=== PATIENT | female | born 1960 | race Hispanic/Latino ===

== ENCOUNTER 2021-04-03 06:34 | Emergency (ER) | payer OTHER ==
--- OUTSIDE RECORDS SUMMARY | 2021-04-03 06:39 | XMS REPORT | Continuity of Care Document ---
:1960 Author Organization [facility] t Address [address] [place] [address] Care Team Providers Name Role Phone Lana Lomax Primary Care Physician Arcadio JAIN, T Attending Clinician Unavailable Only, Test Attending Clinician Unavailable Conrad TORRES, Dany Attending Clinician Dany MARTINES Attending Clinician Unavailable Doctor Unassigned, Name Attending Clinician Unavailable SHMUEL MACHADO Attending Clinician Unavailable SHMUEL MACHADO Admitting Clinician Unavailable Payers Payer Name Policy Type Policy Number Effective Date Expiration Date S ource Problems This patient has no known problems. Allergies, Adverse Reactions, Alerts Allergy Allergy Status Severity Reaction(s) Onset Inactive Treating Comm ents Source Name Type Date Date Clinician NO KNOWN Drug Active Univers ALLERGIE Class ity of S [facility] Social History Social Habit Start Date Stop Date Quantity Comments Source Exposure to Yes [facility] SARS-CoV-2 (event) Medica l Branch Sex Assigned At [birth year] [facility] 00:00:00 00:00:00 [facility] Smoking Status Start Date Stop Date Source Unknown if ever smoked [facility] Medications This patient has no known medications. Immunizations Ordered Filled Immunization Date Status Comments [facility] Immunization Name Name SARS-COV-2 COVID-19 2020-05-20 Completed Unive rsity of PFIZER VACCINE 00:00:00 [facility] SARS-COV-2 COVID-19 2020-05-20 Completed Unive rsity of PFIZER VACCINE 00:00:00 [facility] SARS-COV-2 COVID-19 2020-05-20 Completed Unive rsity of PFIZER VACCINE 00:00:00 [facility] SARS-COV-2 COVID-19 2020-05-20 Completed Unive rsity of PFIZER VACCINE 00:00:00 [facility] SARS-COV-2 COVID-19 2020-05-20 Completed Unive rsity of PFIZER VACCINE 00:00:00 [facility] SARS-COV-2 COVID-19 2020-05-20 Completed Unive rsity of PFIZER VACCINE 00:00:00 [facility] SARS-COV-2 COVID-19 2020-04-29 Completed Unive rsity of PFIZER VACCINE 00:00:00 [facility] SARS-COV-2 COVID-19 2020-04-29 Completed Unive rsity of PFIZER VACCINE 00:00:00 [facility] SARS-COV-2 COVID-19 2020-04-29 Completed Unive rsity of PFIZER VACCINE 00:00:00 [facility] SARS-COV-2 COVID-19 2020-04-29 Completed Unive rsity of PFIZER VACCINE 00:00:00 [facility] SARS-COV-2 COVID-19 2020-04-29 Completed Unive rsity of PFIZER VACCINE 00:00:00 [facility] SARS-COV-2 COVID-19 2020-04-29 Completed Unive rsity of PFIZER VACCINE 00:00:00 [facility] Procedures Procedure Date / Time Performed Performing Clinician [facility] ASSIGNMENT OF BENEFITS 2020-10-26 16:29:02 Doctor Unassigned, No [facility] Encounters Start End Encounter Admission Attending Care Care Encounter Source Date/Time Date/Time Type Type Clinicians Facility Department ID 2020-10-27 2020-10-27 Letter MIRZA Ervin [id number] Univers 00:00:00 00:00:00 (Out) Digna [place] [id number] [facility] [id number] Adam as [phone] [address] 2020-10-26 2020-10-26 Laboratory Only, Adc Test [place] 1.2.840. [id number] Univers 11:33:17 11:48:17 Only Pj Martines [id number] ity of [place] [id number] [facility] [id number] [facility] 353 Branch 2020-10-26 2020-10-26 Outpatient Brigida [facility]ARTINES [facility] [id number] Univers 11:00:00 11:00:00 PJ ity of [facility] 2020-10-26 2020-10-26 Orders Doctor MIRZA [id number] Univers 00:00:00 00:00:00 Only Unassigned, ASHU [id number] [place] [facility] [id number] [facility] [phone] [facility] 009 Branch Results Test Description Test Time Test Comments Results Result Comments Source ANTI-MITOCHONDRIAL AB, REFLEX TO TITER 2017-04-08 12:17:00 Test Item Value Reference Range Interpretation Comme nts SCAN RESULT (test code = 6386046) [id number] 10:38:00 Test Item Value Reference Range Interpretation Comments ALPHA-1 ANTITRYPSIN (BEAKER) 178.00 mg/dL 90.00-200.00 (test code = 502) HERPES VIRUS ANTIBODY, [id number] 13:52:00 Test Item Value Reference Range Interpretation Comments HERPES VIRUS IGM (BEAKER) (test code Positive = 1808) HSV IgM 1 = PositiveHSV IgM 2 = [id number] 05:39:00 Test Item Value Reference Range Interpretation Comments PHOSPHORUS (BEAKER) (test code = 2.3 mg/dL 2.3-4.7 604) [id number] 05:39:00 Test Item Value Reference Range Interpretation Comments MAGNESIUM (BEAKER) (test code = 2.3 mg/dL 1.6-2.6 627) BASIC METABOLIC [id number] 05:39:00 Test Item Value Reference Range Interpretation Comments SODIUM (BEAKER) 139 meq/L 136-145 (test code = 381) POTASSIUM (BEAKER) 4.3 meq/L 3.5-5.1 (test code = 379) CHLORIDE (BEAKER) 107 meq/L 98-107 (test code = 382) CO2 (BEAKER) (test 25 meq/L -29 code = 355) BLOOD UREA NITROGEN 9 mg/dL 7-21 (BEAKER) (test code = 354) CREATININE (BEAKER) 0.59 mg/dL 0.57-1.25 (test code = 358) GLUCOSE RANDOM 103 mg/dL 70-105 (BEAKER) (test code = 652) CALCIUM (BEAKER) 8.7 mg/dL 8.4-10.2 (test code = 697) EGFR (BEAKER) (test 105 mL/min/1.73 ESTIM ATED GFR IS code = 1092) sq m NOT ACCURATE CREATININE CLEARANCE IN PREDICTING GLOMERULAR FILTRATION RATE . ESTIMATED GFR I S NOT APPLICABLE FOR DIALYSIS PATIEN TS. HEPATIC FUNCTION [id number] 05:39:00 Test Item Value Reference Range Interpretation Comments TOTAL PROTEIN (BEAKER) (test code = 6.9 gm/dL 6.0-8.3 770) ALBUMIN (BEAKER) (test code = 1145) 3.5 g/dL 3.5-5.0 BILIRUBIN TOTAL (BEAKER) (test code 0.9 mg/dL 0.2-1.2 = 377) BILIRUBIN DIRECT (BEAKER) (test 0.4 mg/dL 0.1-0.5 code = 706) ALKALINE PHOSPHATASE (BEAKER) (test 118 U/L 40-150 code = 346) AST (SGOT) (BEAKER) (test code = 55 U/L 5-34 H 353) ALT (SGPT) (BEAKER) (test code = 402 U/L 6-55 H 347) [id number] 05:29:00 Test Item Value Reference Range Interpretation Comments PROTIME (BEAKER) (test code = 13.3 seconds 11.7-14.7 759) INR (BEAKER) (test code = 370) 1.0 <=5.9 PARTIAL THROMBOPLASTIN TIME 35.2 seconds 22.5-36.0 (BEAKER) (test code = 760) RECOMMENDED COUMADIN/WARFARIN INR THERAPY RANGESSTANDARD DOSE: 2.0 - 3.0 Includes: PROPHYLAXIS forvenous thrombosis, systemic embolization; TREATMENT for venous thrombosis and/or pulmonary embolus.HIGH RISK: Target INR is 2.5-3.5 for patients with mechanical heart valves.PROTHROMBIN [id number] 05:28:00 Test Item Value Reference Range Interpretation Comments PROTIME (BEAKER) (test code = 13.3 seconds 11.7-14.7 759) INR (BEAKER) (test code = 370) 1.0 <=5.9 RECOMMENDED COUMADIN/WARFARIN INR THERAPY RANGESSTANDARD DOSE: 2.0 - 3.0 Includes: PROPHYLAXIS forvenous thrombosis, systemic embolization; TREATMENT for venous thrombosis and/or pulmonary embolus.HIGH RISK: Target INR is 2.5-3.5 for patients with mechanical heart valves.CBC W/PLT COUNT & AUTO DIFFERENTIAL 2017-03-30 04:59:00 Test Item Value Reference Range Interpretation Comments WHITE BLOOD CELL COUNT (BEAKER) 5.2 K/ L 3.5-10.5 (test code = 775) RED BLOOD CELL COUNT (BEAKER) 4.50 M/ L 3.93-5.22 (test code = 761) HEMOGLOBIN (BEAKER) (test code = 13.2 GM/DL 11.2-15.7 410) HEMATOCRIT (BEAKER) (test code = 40.5 % 34.1-44.9 411) MEAN CORPUSCULAR VOLUME (BEAKER) 90.0 fL 79.4-94.8 (test code = 753) MEAN CORPUSCULAR HEMOGLOBIN 29.3 pg 25.6-32.2 (BEAKER) (test code = 751) MEAN CORPUSCULAR HEMOGLOBIN CONC 32.6 GM/DL 32.2-35.5 (BEAKER) (test code = 752) RED CELL DISTRIBUTION WIDTH 15.5 % 11.7-14.4 H (BEAKER) (test code = 412) PLATELET COUNT (BEAKER) (test 221 K/CU MM 150-450 code = 756) MEAN PLATELET VOLUME (BEAKER) 10.1 fL 9.4-12.3 (test code = 754) NUCLEATED RED BLOOD CELLS 0 /100 WBC 0-0 (BEAKER) (test code = 413) NEUTROPHILS RELATIVE PERCENT 66 % (BEAKER) (test code = 429) LYMPHOCYTES RELATIVE PERCENT 24 % (BEAKER) (test code = 430) MONOCYTES RELATIVE PERCENT 7 % (BEAKER) (test code = 431) EOSINOPHILS RELATIVE PERCENT 2 % (BEAKER) (test code = 432) BASOPHILS RELATIVE PERCENT 0 % (BEAKER) (test code = 437) NEUTROPHILS ABSOLUTE COUNT 3.43 K/ L 1.56-6.13 (BEAKER) (test code = 670) LYMPHOCYTES ABSOLUTE COUNT 1.25 K/ L 1.18-3.74 (BEAKER) (test code = 414) MONOCYTES ABSOLUTE COUNT (BEAKER) 0.35 K/ L 0.24-0.36 (test code = 415) EOSINOPHILS ABSOLUTE COUNT 0.08 K/ L 0.04-0.36 (BEAKER) (test code = 416) BASOPHILS ABSOLUTE COUNT (BEAKER) 0.02 K/ L 0.01-0.08 (test code = 417) IMMATURE GRANULOCYTES-RELATIVE 1 % 0-1 PERCENT (BEAKER) (test code = 2801) [id number] 16:45:00 Test Item Value Reference Range Interpretation Comments FERRITIN (BEAKER) (test code = 361) 310 ng/mL 5-275 H HEPATITIS A ANTIBODY, [id number] 16:31:00 Test Item Value Reference Range Interpretation Comments HEPATITIS A IGG ANTIBODY (BEAKER) Reactive Nonreactive A (test code = 2797) HEPATITIS B SURFACE [id number] 16:26:00 Test Item Value Reference Range Interpretation Comments HEPATITIS B SURFACE ANTIBODY < mIU/mL <8.0 (BEAKER) (test code = 647) HEPATITIS B CORE ANTIBODY, [id number] 16:22:00 Test Item Value Reference Range Interpretation Comments HEPATITIS B CORE TOTAL ANTIBODY Nonreactive Nonreactive (BEAKER) (test code = 497) IMMUNOGLOBULIN G (IGG)2017-03-29 16:08:00 Test Item Value Reference Range Interpretation Comments IMMUNOGLOBULIN G (IGG) (BEAKER) 1265 mg/dL 540-1822 (test code = 427) IRON, TIBC, % SAT. (WITHOUT FERRITIN)2017-03-29 16:05:00 Test Item Value Reference Range Interpretation Comments IRON (BEAKER) (test code = 547) 42 ug/dL 40-160 TOTAL IRON BINDING CAPACITY 343 ug/dL 250-450 (BEAKER) (test code = 769) IRON % SATURATION (2) (BEAKER) 12 % 20-55 L (test code = 2590) GAMMA GLUTAMYL TRANSFERASE (GGT)2017-03-29 16:04:00 Test Item Value Reference Range Interpretation Comments GAMMA GLUTAMYL TRANSFERASE (BEAKER) 514 U/L 9-64 H (test code = 364) BASIC METABOLIC [id number] 06:01:00 Test Item Value Reference Range Interpretation Comments SODIUM (BEAKER) 136 meq/L 136-145 (test code = 381) POTASSIUM (BEAKER) 3.3 meq/L 3.5-5.1 L (test code = 379) CHLORIDE (BEAKER) 107 meq/L 98-107 (test code = 382) CO2 (BEAKER) (test 19 meq/L 22-29 L code = 355) BLOOD UREA NITROGEN 7 mg/dL 7-21 (BEAKER) (test code = 354) CREATININE (BEAKER) 0.57 mg/dL 0.57-1.25 (test code = 358) GLUCOSE RANDOM 79 mg/dL 70-105 (BEAKER) (test code = 652) CALCIUM (BEAKER) 7.7 mg/dL 8.4-10.2 L (test code = 697) EGFR (BEAKER) (test 109 mL/min/1.73 ESTIM ATED GFR IS code = 1092) sq m NOT ACCURATE CREATININE CLEARANCE IN PREDICTING GLOMERULAR FILTRATION RATE . ESTIMATED GFR I S NOT APPLICABLE FOR DIALYSIS PATIEN TS. [id number] 05:58:00 Test Item Value Reference Range Interpretation Comments PHOSPHORUS (BEAKER) (test code = 1.6 mg/dL 2.3-4.7 L 604) [id number] 05:58:00 Test Item Value Reference Range Interpretation Comments MAGNESIUM (BEAKER) (test code = 2.0 mg/dL 1.6-2.6 627) HEPATIC FUNCTION [id number] 05:58:00 Test Item Value Reference Range Interpretation Comments TOTAL PROTEIN (BEAKER) (test code = 6.8 gm/dL 6.0-8.3 770) ALBUMIN (BEAKER) (test code = 1145) 3.5 g/dL 3.5-5.0 BILIRUBIN TOTAL (BEAKER) (test code 1.0 mg/dL 0.2-1.2 = 377) BILIRUBIN DIRECT (BEAKER) (test 0.5 mg/dL 0.1-0.5 code = 706) ALKALINE PHOSPHATASE (BEAKER) (test 131 U/L 40-150 code = 346) AST (SGOT) (BEAKER) (test code = 131 U/L 5-34 H 353) ALT (SGPT) (BEAKER) (test code = 578 U/L 6-55 H 347) [id number] 05:12:00 Test Item Value Reference Range Interpretation Comments PROTIME (BEAKER) (test code = 13.4 seconds 11.7-14.7 759) INR (BEAKER) (test code = 370) 1.0 <=5.9 PARTIAL THROMBOPLASTIN TIME 33.4 seconds 22.5-36.0 (BEAKER) (test code = 760) RECOMMENDED COUMADIN/WARFARIN INR THERAPY RANGESSTANDARD DOSE: 2.0 - 3.0 Includes: PROPHYLAXIS forvenous thrombosis, systemic embolization; TREATMENT for venous thrombosis and/or pulmonary embolus.HIGH RISK: Target INR is 2.5-3.5 for patients with mechanical heart valves.PROTHROMBIN [id number] 05:11:00 Test Item Value Reference Range Interpretation Comments PROTIME (BEAKER) (test code = 13.4 seconds 11.7-14.7 759) INR (BEAKER) (test code = 370) 1.0 <=5.9 RECOMMENDED COUMADIN/WARFARIN INR THERAPY RANGESSTANDARD DOSE: 2.0 - 3.0 Includes: PROPHYLAXIS forvenous thrombosis, systemic embolization; TREATMENT for venous thrombosis and/or pulmonary embolus.HIGH RISK: Target INR is 2.5-3.5 for patients with mechanical heart valves.CBC W/PLT COUNT & AUTO DIFFERENTIAL 2017-03-29 04:53:00 Test Item Value Reference Range Interpretation Comments WHITE BLOOD CELL COUNT (BEAKER) 6.7 K/ L 3.5-10.5 (test code = 775) RED BLOOD CELL COUNT (BEAKER) 4.44 M/ L 3.93-5.22 (test code = 761) HEMOGLOBIN (BEAKER) (test code = 12.8 GM/DL 11.2-15.7 410) HEMATOCRIT (BEAKER) (test code = 39.6 % 34.1-44.9 411) MEAN CORPUSCULAR VOLUME (BEAKER) 89.2 fL 79.4-94.8 (test code = 753) MEAN CORPUSCULAR HEMOGLOBIN 28.8 pg 25.6-32.2 (BEAKER) (test code = 751) MEAN CORPUSCULAR HEMOGLOBIN CONC 32.3 GM/DL 32.2-35.5 (BEAKER) (test code = 752) RED CELL DISTRIBUTION WIDTH 15.6 % 11.7-14.4 H (BEAKER) (test code = 412) PLATELET COUNT (BEAKER) (test 223 K/CU MM 150-450 code = 756) MEAN PLATELET VOLUME (BEAKER) 10.1 fL 9.4-12.3 (test code = 754) NUCLEATED RED BLOOD CELLS 0 /100 WBC 0-0 (BEAKER) (test code = 413) NEUTROPHILS RELATIVE PERCENT 74 % (BEAKER) (test code = 429) LYMPHOCYTES RELATIVE PERCENT 17 % (BEAKER) (test code = 430) MONOCYTES RELATIVE PERCENT 7 % (BEAKER) (test code = 431) EOSINOPHILS RELATIVE PERCENT 1 % (BEAKER) (test code = 432) BASOPHILS RELATIVE PERCENT 1 % (BEAKER) (test code = 437) NEUTROPHILS ABSOLUTE COUNT 4.98 K/ L 1.56-6.13 (BEAKER) (test code = 670) LYMPHOCYTES ABSOLUTE COUNT 1.16 K/ L 1.18-3.74 L (BEAKER) (test code = 414) MONOCYTES ABSOLUTE COUNT (BEAKER) 0.44 K/ L 0.24-0.36 H (test code = 415) EOSINOPHILS ABSOLUTE COUNT 0.06 K/ L 0.04-0.36 (BEAKER) (test code = 416) BASOPHILS ABSOLUTE COUNT (BEAKER) 0.04 K/ L 0.01-0.08 (test code = 417) IMMATURE GRANULOCYTES-RELATIVE 0 % 0-1 PERCENT (BEAKER) (test code = 2801) MR, ABDOMEN, [id number] 22:05:00FINAL REPORT MRCP, MRI of abdomen without contrast Clinical History: Biliaryductal dilation seen on contemporaneous abdominal ultrasound Technique: Multiplanar and multisequence MR images of the biliary system are obtained, with dedicated MRCP protocol and images. No intravenous contrast is administered. In addition, 3 dimensional reformatted images of the biliary system are obtained to evaluate the biliary anatomy. Comparison: Abdominal ultrasound from 03/28/2017 Discussion: This examination is not dedicated to evaluating masses or parenchymal abnormalities of the abdominal organs. Diffuse hepatic steatosis. No discrete focal liver lesion within limitations of noncontrastexamination. There is moderate intrahepatic and extra hepatic biliary ductal dilation. The common bile duct measures up to 1.4 cm. No discrete filling defect is identified within the biliary tree. Gallbladder is absent. The pancreas, spleen, adrenal glands, and bilateral kidneys are grossly unremarkable for noncontrast examination. No significant ascites. No upper abdominal lymphadenopathy. Visualized portions of the bowel are grossly unremarkable. Impression: Moderate intrahepatic and extrahepatic biliary ductal dilation without discrete filling defect in the biliary tree. Findings are likely related to reservoir effect from prior cholecystectomy. Diffuse hepatic steatosis. Signed: Manolo Hernandez MDReport Verified Date/Time: 03/28/2017 22:05:22 Reading Location: [facility] B1 C013W Consult Reading Room POCT-GLUCOSE [id number] 13:06:00 Test Item Value Reference Range Interpretation Comments POC-GLUCOSE METER 76 mg/dL 70-[address] [facility] 6720 (BEAKER) (test code = [place] [address] 1538) VARICELLA ZOSTER ANTIBODY, [id number] 12:17:00 Test Item Value Reference Range Interpretation Comments VARICELLA ZOSTER IGG (AL) (BEAKER) 3.4 Al (test code = 3197) VARICELLA ZOSTER RESULT INTERPRETATIONS: <=0.8 Al Nonreactive: Presumed non-immune to VZV 0.9-1.0 Al Equivocal >=1.1 Al Reactive: Presumed immune to VZVURINALYSIS W/ [id number] 12:12:00 Test Item Value Reference Range Interpretation Comments COLOR (BEAKER) (test code = 470) Yellow CLARITY (BEAKER) (test code = 469) Clear SPECIFIC GRAVITY UA (BEAKER) (test 1.025 1.001-1.035 code = 468) PH UA (BEAKER) (test code = 467) 6.5 5.0-8.0 PROTEIN UA (BEAKER) (test code = 30 mg/dL Negative A 464) GLUCOSE UA (BEAKER) (test code = Negative Negative 365) KETONES UA (BEAKER) (test code = >150 mg/dL Negative A 371) BILIRUBIN UA (BEAKER) (test code = Positive Negative A 462) BLOOD UA (BEAKER) (test code = Moderate Negative A 461) NITRITE UA (BEAKER) (test code = Negative Negative 465) LEUKOCYTE ESTERASE UA (BEAKER) Negative Negative (test code = 466) UROBILINOGEN UA (BEAKER) (test 0.2 mg/dL 0.2-1.0 code = 463) RBC UA (BEAKER) (test code = 519) 24 /HPF WBC UA (BEAKER) (test code = 520) 3 /HPF MUCUS (BEAKER) (test code = 1574) Occasional SOURCE(BEAKER) (test code = 2795) EBV-VCA ANTIBODY, [id number] 12:09:00 Test Item Value Reference Range Interpretation Comments LES-GUTIERREZ VCA IGM (BEAKER) (test Negative code = 984) CYTOMEGALOVIRUS ANTIBODY, [id number] 12:07:00 Test Item Value Reference Range Interpretation Comments CYTOMEGALOVIRUS IGM ANTIBODY Negative (BEAKER) (test code = 816) POCT-GLUCOSE [id number] 10:43:00 Test Item Value Reference Range Interpretation Comments POC-GLUCOSE METER 74 mg/dL 70-[address] [facility] 6720 (BEAKER) (test code = ABDULLAHI Allred [facility] [address] 1538) ANTI-NUCLEAR ANTIBODY (ROMINA)2017-03-28 10:11:00 Test Item Value Reference Range Interpretation Comments ANTI-NUCLEAR ANTIBODY (ROMINA) (BEAKER) Positive Negative A (test code = 418) ROMINA TITER AND [id number] 10:11:00 Test Item Value Reference Range Interpretation Comments ROMINA TITER (BEAKER) (test code = >=:2560 1541) ROMINA PATTERN (BEAKER) (test code = Homogeneous 1781) U/S, ABDOMINAL, [id number] 09:50:00Abdomen limited area? Add comment if clarification is needed.->Right upper quadrantReason for exam:->elevated LFTsFINAL REPORT TECHNIQUE: Grayscale ultrasound of the right abdomen. INDICATION: 56-year-old woman with elevated LFTs. COMPARISON: None. FINDINGS: MIDLINE VASCULATURE: The visualized inferior vena cava is patent. Portal vein is patent. Visualized abdominal aorta is within normal l imits in caliber LIVER: Increased echogenicity of the liver, consistent with hepatic steatosis. Smooth liver contour. No focal lesions. BILIARY:Gallbladder: Prior cholecystectomy.Common bile duct measures 1.4 cm, within normal limits. No intrahepatic biliary ductal dilatation. PANCREAS: Visualized portions of the pancreas are unremarkable. PERITONEUM: No free fluid. RIGHT KIDNEY: Normal in size. No hydronephrosis. No sonographically evident solid mass lesion. IMPRESSION:Hepatic steatosis. Prominentcommon bile duct, which may be seen in the setting of postcholecystectomy reservoir effect. Obstructive cholangiopathy cannot be excluded, however. RECOMMENDATION:Biliary findings may be correlated with serum bilirubin to assess for cholestasis and the need for further imaging with MRCP or ERCP. Signed: Kristel Humphries MDReport Verified Date/Time: 03/28/2017 09:50:16 Reading Location: [facility] P006J Ultrasound Reading Room TITIS PANEL, [id number] 06:14:00 Test Item Value Reference Range Interpretation Comments HEPATITIS A IGM ANTIBODY (BEAKER) Nonreactive Nonreactive (test code = 498) HEPATITIS B CORE IGM ANTIBODY Nonreactive Nonreactive (BEAKER) (test code = 645) HEPATITIS C ANTIBODY (BEAKER) Nonreactive Nonreactive (test code = 367) HEPATITIS B SURFACE ANTIGEN (2) Nonreactive Nonreactive (BEAKER) (test code = 2585) HEPATIC FUNCTION [id number] 05:55:00 Test Item Value Reference Range Interpretation Comments TOTAL PROTEIN (BEAKER) (test code = 7.3 gm/dL 6.0-8.3 770) ALBUMIN (BEAKER) (test code = 1145) 3.8 g/dL 3.5-5.0 BILIRUBIN TOTAL (BEAKER) (test code 1.6 mg/dL 0.2-1.2 H = 377) BILIRUBIN DIRECT (BEAKER) (test 0.8 mg/dL 0.1-0.5 H code = 706) ALKALINE PHOSPHATASE (BEAKER) (test 159 U/L 40-150 H code = 346) AST (SGOT) (BEAKER) (test code = 389 U/L 5-34 H 353) ALT (SGPT) (BEAKER) (test code = 947 U/L 6-55 H 347) BASIC METABOLIC [id number] 05:55:00 Test Item Value Reference Range Interpretation Comments SODIUM (BEAKER) 135 meq/L 136-145 L (test code = 381) POTASSIUM (BEAKER) 3.7 meq/L 3.5-5.1 (test code = 379) CHLORIDE (BEAKER) 104 meq/L 98-107 (test code = 382) CO2 (BEAKER) (test 22 meq/L 22-29 code = 355) BLOOD UREA NITROGEN 10 mg/dL 7-21 (BEAKER) (test code = 354) CREATININE (BEAKER) 0.62 mg/dL 0.57-1.25 (test code = 358) GLUCOSE RANDOM 88 mg/dL 70-105 (BEAKER) (test code = 652) CALCIUM (BEAKER) 8.1 mg/dL 8.4-10.2 L (test code = 697) EGFR (BEAKER) (test 99 mL/min/1.73 ESTIMA KENIA GFR IS code = 1092) sq m NOT ACCURATE CREATININE CLEARANCE IN PREDICTING GLOMERULAR FILTRATION RATE . ESTIMATED GFR I S NOT APPLICABLE FOR DIALYSIS PATIEN TS. PROTHROMBIN [id number] 05:42:00 Test Item Value Reference Range Interpretation Comments PROTIME (BEAKER) (test code = 14.1 seconds 11.7-14.7 759) INR (BEAKER) (test code = 370) 1.1 <=5.9 RECOMMENDED COUMADIN/WARFARIN INR THERAPY RANGESSTANDARD DOSE: 2.0 - 3.0 Includes: PROPHYLAXIS forvenous thrombosis, systemic embolization; TREATMENT for venous thrombosis and/or pulmonary embolus.HIGH RISK: Target INR is 2.5-3.5 for patients with mechanical heart valves.PT/[id number] 05:42:00 Test Item Value Reference Range Interpretation Comments PROTIME (BEAKER) (test code = 14.1 seconds 11.7-14.7 759) INR (BEAKER) (test code = 370) 1.1 <=5.9 PARTIAL THROMBOPLASTIN TIME 32.6 seconds 22.5-36.0 (BEAKER) (test code = 760) RECOMMENDED COUMADIN/WARFARIN INR THERAPY RANGESSTANDARD DOSE: 2.0 - 3.0 Includes: PROPHYLAXIS forvenous thrombosis, systemic embolization; TREATMENT for venous thrombosis and/or pulmonary embolus.HIGH RISK: Target INR is 2.5-3.5 for patients with mechanical heart valves.CBC W/PLT COUNT & AUTO DIFFERENTIAL 2017-03-28 05:19:00 Test Item Value Reference Range Interpretation Comments WHITE BLOOD CELL COUNT (BEAKER) 7.6 K/ L 3.5-10.5 (test code = 775) RED BLOOD CELL COUNT (BEAKER) 4.43 M/ L 3.93-5.22 (test code = 761) HEMOGLOBIN (BEAKER) (test code = 12.9 GM/DL 11.2-15.7 410) HEMATOCRIT (BEAKER) (test code = 39.4 % 34.1-44.9 411) MEAN CORPUSCULAR VOLUME (BEAKER) 88.9 fL 79.4-94.8 (test code = 753) MEAN CORPUSCULAR HEMOGLOBIN 29.1 pg 25.6-32.2 (BEAKER) (test code = 751) MEAN CORPUSCULAR HEMOGLOBIN CONC 32.7 GM/DL 32.2-35.5 (BEAKER) (test code = 752) RED CELL DISTRIBUTION WIDTH 15.8 % 11.7-14.4 H (BEAKER) (test code = 412) PLATELET COUNT (BEAKER) (test 243 K/CU MM 150-450 code = 756) MEAN PLATELET VOLUME (BEAKER) 9.8 fL 9.4-12.3 (test code = 754) NUCLEATED RED BLOOD CELLS 0 /100 WBC 0-0 (BEAKER) (test code = 413) NEUTROPHILS RELATIVE PERCENT 79 % (BEAKER) (test code = 429) LYMPHOCYTES RELATIVE PERCENT 14 % (BEAKER) (test code = 430) MONOCYTES RELATIVE PERCENT 6 % (BEAKER) (test code = 431) EOSINOPHILS RELATIVE PERCENT 0 % (BEAKER) (test code = 432) BASOPHILS RELATIVE PERCENT 1 % (BEAKER) (test code = 437) NEUTROPHILS ABSOLUTE COUNT 5.98 K/ L 1.56-6.13 (BEAKER) (test code = 670) LYMPHOCYTES ABSOLUTE COUNT 1.06 K/ L 1.18-3.74 L (BEAKER) (test code = 414) MONOCYTES ABSOLUTE COUNT (BEAKER) 0.43 K/ L 0.24-0.36 H (test code = 415) EOSINOPHILS ABSOLUTE COUNT 0.02 K/ L 0.04-0.36 L (BEAKER) (test code = 416) BASOPHILS ABSOLUTE COUNT (BEAKER) 0.04 K/ L 0.01-0.08 (test code = 417) IMMATURE GRANULOCYTES-RELATIVE 1 % 0-1 PERCENT (BEAKER) (test code = 2801)
[2021-04-03] MEDS ORDERED: ONDANSETRON 4 MG/2 ML VIAL ONE (07:46)
[2021-04-03] MEDS ORDERED: MORPHINE 4 MG/ML SYR ONE ×2 (07:46→10:23)
[2021-04-03] MEDS ORDERED: NA CHLORIDE 0.9% 1,000 ML ONE (07:46)
[2021-04-03 08:05] LABS: Absolute Lymphocytes (CBC) 1.6 K/uL (0.7-4.9); Hematocrit 43.2 % (36.0-45.0); Lymphocytes % 20.3 % (15.3-44.8); MPV 8.7 fL (7.6-11.3)
[2021-04-03 08:07] LABS: Protime INR 0.9
--- NOTE | 2021-04-03 08:14 | RAD REPORT ---
EXAM DESCRIPTION: RAD - Chest Single View - 04/03/2021 7:59 am CLINICAL HISTORY: ABDOMINAL DISTENTION COMPARISON: Chest Single View dated 03/27/2017; Chest Pa And Lat (2 Views) dated 12/04/2015 FINDINGS: Lines: None. Lungs: No evidence of edema or pneumonia. Pleural: No significant pleural effusions or pneumothorax. Cardiac: The heart size is within normal limits. Bones: No acute fractures. Other: IMPRESSION: No acute cardiopulmonary disease.
[2021-04-03 09:53] LABS: ALT/SGPT 23 U/L (12-78); AST/SGOT 14 U/L (15-37); Albumin 3.6 g/dL (3.4-5.0); Alkaline Phosphatase 81 U/L (45-117); BUN Blood Urea Nitrogen 9 mg/dL (7-18); Bicarbonate 24 mmol/L (21-32); Bilirubin Direct 0.1 mg/dL (0-0.2); Bilirubin Total 0.5 mg/dL (0.2-1.0); Glucose Level 120 mg/dL (74-106); Lipase 44 U/L (73-393); Potassium 3.6 mmol/L (3.5-5.1); Protein, Total 7.4 g/dL (6.4-8.2); Sodium Level 140 mmol/L (136-145)
[2021-04-03 10:17] LABS: Urine Blood 1+ (Negative); Urine Glucose Negative (Negative); Urine Protein Trace (Negative)
--- NOTE | 2021-04-03 10:38 | RAD REPORT ---
EXAM DESCRIPTION: CTAbdomen Pelvis W Contrast - 04/03/2021 10:15 am CLINICAL HISTORY: epigastric and right side abdomen pain COMPARISON: Abdomen Pelvis W Contrast dated 03/01/2020; Abdomen Pelvis W Contrast dated 8; Abdomen Pelvis W Contrast dated 04/15/2016; Abdomen Pelvis W Contrast dated 04/01/2016 TECHNIQUE: CT of the abdomen and pelvis was performed. All CT scans are performed using dose optimization technique as appropriate and may include automated exposure control or mA/KV adjustment according to patient size. FINDINGS: Lower chest: Bilateral breast prostheses. No acute process in lung bases. Liver: Intrahepatic biliary ductal dilatation, minimally increased. No suspicious liver lesions are s een. Biliary: Cholecystectomy. Extrahepatic biliary ductal dilatation is again noted. The common bile duct measures approximately 14 millimeters. A periampullary diverticulum is noted which could be contribu ting to the degree of dilatation. Regardless, the findings are unchanged. Stomach: No significant focal abnormality. Duodenum: No significant focal abnormality. Pancreas: No significant abnormality. Spleen: No significant abnormality. Adrenal: Mild left adrenal nodularity, a benign finding. Kidney/ureter: No hydronephrosis. Nonobstructing stones in the left kidney. Retroperitoneum: No retroperitoneal adenopathy. Vascular: No aneurysm. Bowel: Partial colectomy. Diverticulosis.. Moderate stool of the cecum. No bowel obstruction. Peritoneum: Trace free fluid in the pelvis. Bladder: Bladder stimulator. The bladder is decompressed. Reproductive: No adnexal masses. Hysterectomy Bones: No acute fracture. Other: n/a IMPRESSION: 1. No definite acute intra-abdominal abnormality. 2. Intra and extrahepatic biliary dilatation which is grossly similar to 03/01/2020. Correlate with L FTs. A periampullary diverticulum and/or secondary to the postcholecystectomy state could be the etio logy for biliary dilatation.
[2021-04-03 11:10] LABS: Urine Bacteria NONE SEEN /HPF (<20); Urine RBC NONE SEEN /HPF (NONE SEEN)
[2021-04-03] MEDS ORDERED: DICYCLOMINE HCL 10 MG CAP ONE (11:11)
[2021-04-03] MEDS ORDERED: LIDOCAINE VISCOUS 2% SOLN 15 ML UDC ONE (11:30)
[2021-04-03] MEDS ORDERED: MAGNES/ALUMIN/SIMET 30ML UCUP ONE (11:30)
--- NOTE | 2021-04-03 12:14 | EDPHYS ---
Physician Documentation [facility] Name: Alejandra Rodríguez Age: 60 yrs Sex: Female : 1960 Arrival Date: 04/03/2021 Time: 06:38 Bed 19 Private MD: Nadine Lomax K ED Physician Krystian Esposito HPI: 04/03 07:15 This 60 yrs old Female presents to ER via Wheelchair with complaints of cp Abdominal Pain. 07:15 The patient presents with abdominal pain in the epigastric area, in the right upper cp quadrant, right lower quadrant. Onset: The symptoms/episode began/occurred this morning. The symptoms do not radiate. Associated signs and symptoms: Pertinent negatives: constipation, diarrhea, fever, vomiting. The symptoms are described as described as tightening. Modifying factors: the symptoms are aggravated by movement. Severity of pain: in the emergency department the pain is unchanged despite home interventions. Historical: - Allergies: 06:58 TETRACYCLINES; lg3 - Home Meds: 06:58 amlodipine 2.5 mg tab 1 tab once daily [Active]; atorvastatin 10 mg Oral tab 1 tab once lg3 daily [Active]; levothyroxine 88 mcg tab 1 tab once daily [Active]; orencia 750 mg [Active]; - Immunization history:: Flu vaccine is not up to date. - Social history:: Smoking status: Patient denies any tobacco usage or history of. ROS: 07:16 Eyes: Negative for injury, pain, redness, and discharge. cp 07:16 Constitutional: Negative for chills, fever, poor PO intake. 07:16 Cardiovascular: Negative for chest pain, palpitations. 07:16 Respiratory: Negative for cough, shortness of breath, wheezing. 07:16 Abdomen/GI: Positive for abdominal pain, abdominal distension, Negative for vomiting, diarrhea, constipation, black/tarry stool, rectal bleeding. 07:16 Back: Negative for radiated pain. 07:16 : Negative for urinary symptoms. 07:16 Neuro: Negative for altered mental status, dizziness, headache, weakness. 07:16 All other systems are negative. Exam: 07:20 Head/Face: Normocephalic, atraumatic. cp 07:20 Constitutional: The patient appears in no acute distress, alert, awake, non-diaphoretic, non-toxic, well developed, well nourished, uncomfortable. 07:20 Eyes: Periorbital structures: appear normal, Conjunctiva: normal, no exudate, no cp injection, Sclera: no appreciated abnormality, Lids and lashes: appear normal, bilaterally. 07:20 ENT: External ear(s): are unremarkable, Nose: is normal, Mouth: Lips: moist, Oral mucosa: moist, Posterior pharynx: Airway: no evidence of obstruction, patent. 07:20 Chest/axilla: Inspection: normal. 07:20 Cardiovascular: Rate: bradycardic, Rhythm: regular, Edema: is not appreciated, JVD: is not appreciated. 07:20 Respiratory: the patient does not display signs of respiratory distress, Respirations: normal, no use of accessory muscles, no retractions, labored breathing, is not present, Breath sounds: are clear throughout, no decreased breath sounds, no stridor, no wheezing. 07:20 Abdomen/GI: Inspection: abdomen appears normal, Bowel sounds: active, all quadrants, Palpation: soft, in all quadrants, moderate abdominal tenderness, in the epigastric area, left upper quadrant and left lower quadrant, rebound tenderness, is not appreciated, voluntary guarding, is elicited in the epigastric area, left upper quadrant and left lower quadrant. 07:20 Back: CVA tenderness, is absent. 07:20 Neuro: Orientation: to person, place \T\ time. Mentation: is normal. 07:38 ECG was reviewed by the Attending Physician. Vital Signs: 06:56 BP 131 / 54; Pulse 56; Resp 18; Temp 97.8; Pulse Ox 97% on R/A; Weight 86.18 kg; Height lg3 5 ft. 3 in. (160.02 cm); Pain 8/10; 09:00 BP 136 / 70; Pulse 50; Resp 16; Pulse Ox 99% ; bp 10:24 BP 130 / 64; Pulse 59; Resp 16; Pulse Ox 99% ; bp 11:30 BP 127 / 71; Pulse 54; Resp 17; Pulse Ox 99% ; bp 12:20 BP 131 / 65; Pulse 59; Resp 17; Pulse Ox 98% ; bp 06:56 Body Mass Index 33.66 (86.18 kg, 160.02 cm) lg3 MDM: 07:01 Patient medically screened. amy 08:00 Differential diagnosis: appendicitis, bowel obstruction, cholecystitis, Cholelithiasis, cp diverticulitis, gastritis, gastroesophageal reflux disease, pancreatitis, Peptic Ulcer Disease, Perf. Duodenal Ulcer, Perf. Gastric Ulcer, Pyelonephritis, Ureterolithiasis, urinary tract infection. 11:48 Data reviewed: vital signs, nurses notes, lab test result(s), EKG, radiologic studies, cp CT scan, plain films. 11:48 Counseling: I had a detailed discussion with the patient and/or guardian regarding: the cp historical points, exam findings, and any diagnostic results supporting the discharge/admit diagnosis, lab results, radiology results, to return to the emergency department if symptoms worsen or persist or if there are any questions or concerns that arise at home. Response to treatment: the patient's symptoms have markedly improved after treatment. 04/03 07:12 Order name: Basic Metabolic Panel cp 04/03 10:14 Interpretation: Normal except: CL 109; GLUC 120. cp 04/03 07:12 Order name: CBC with Diff; Complete Time: 08:23 cp 04/03 08:23 Interpretation: Normal except: RBC 5.10; MCV 84.9; TONY% 73.8. cp 04/03 07:12 Order name: LFT's cp 04/03 10:15 Interpretation: Normal except: AST 14; GLOB 3.8; A/G 0.9. cp 04/03 07:12 Order name: Magnesium cp 04/03 07:12 Order name: PT-INR; Complete Time: 08:23 cp 04/03 07:12 Order name: Troponin HS cp 04/03 07:12 Order name: XRAY Chest (1 view); Complete Time: 08:23 cp 04/03 07:12 Order name: Lipase cp 04/03 10:15 Interpretation: LIP 44; Reviewed. cp 04/03 07:12 Order name: Urine Microscopic Only cp 04/03 08:24 Order name: CT Abd/Pelvis - IV Contrast Only; Complete Time: 10:42 cp 04/03 10:17 Order name: Urine Dipstick-Ancillary; Complete Time: 10:18 EDMS 04/03 10:18 Interpretation: Normal except: UBLD 1+; UPROT Trace. cp 04/03 07:12 Order name: EKG; Complete Time: 07:13 cp 04/03 07:12 Order name: Cardiac monitoring; Complete Time: 07:55 cp 04/03 07:12 Order name: EKG - Nurse/Tech; Complete Time: 07:55 cp 04/03 07:12 Order name: IV Saline Lock; Complete Time: 07:55 cp 04/03 07:12 Order name: Labs collected and sent; Complete Time: 07:55 cp 04/03 07:12 Order name: O2 Per Protocol; Complete Time: 07:55 cp 04/03 07:12 Order name: O2 Sat Monitoring; Complete Time: 07:55 cp 04/03 07:12 Order name: Urine Dipstick-Ancillary (obtain specimen); Complete Time: 10:24 cp 04/03 10:46 Order name: PO challenge; Complete Time: 11:21 cp EC:38 Rate is 51 beats/min. Rhythm is regular. VA interval is normal. QRS interval is normal. cp QT interval is normal. T waves are Inverted in leads aVR, V2. Interpreted by me. Reviewed by me. Administered Medications: 07:30 Drug: Zofran (Ondansetron) 4 mg Route: IVP; Site: right antecubital; bp 10:23 Follow up: Response: No adverse reaction bp 07:30 Drug: morphine 4 mg Route: IVP; Site: right antecubital; bp 10:23 Follow up: Response: Pain is decreased bp 07:30 Drug: NS 0.9% 500 ml Route: IV; Rate: bolus; Site: right antecubital; bp 12:21 Follow up: IV Status: Completed infusion; IV Intake: 500ml bp 07:30 Drug: NS 0.9% 500 ml Route: IV; Rate: 125 ml/hr; Site: right antecubital; bp 12:21 Follow up: IV Status: Completed infusion; IV Intake: 500ml bp 10:23 Drug: morphine 4 mg Route: IVP; Site: right antecubital; bp 11:03 Follow up: Response: Pain is decreased bp 11:00 Drug: Bentyl (dicyclomine) 20 mg Route: PO; bp 12:21 Follow up: Response: No adverse reaction bp 11:30 Drug: GI Cocktail without - (Maalox Suspension 30 ml, Lidocaine Liquid 2 % 15 bp ml) Route: PO; 12:21 Follow up: Response: No adverse reaction bp Disposition: 15:16 Co-signature as Attending Physician, Krystian Esposito MD I agree with the assessment and amy plan of care. Disposition Summary: 04/03/21 11:49 Discharge Ordered Location: Home cp Problem: new cp Symptoms: have improved cp Condition: Stable cp Diagnosis - Abdominal pain, unspecified cp Followup: cp - With: Private Physician - When: 2 - 3 days - Reason: Worsening of condition Discharge Instructions: - Discharge Summary Sheet cp - Abdominal Pain, Adult cp Forms: - Medication Reconciliation Form cp - Thank You Letter cp - Antibiotic Education cp - Prescription Opioid Use cp Prescriptions: - Protonix 40 mg Oral Tablet - take 1 tablet by ORAL route once daily; 30 tablet; Refills: 0, Product cp Selection Permitted - Zofran 4 mg Oral Tablet - take 1 tablet by ORAL route every 12 hours As needed; 20 tablet; Refills: 0, cp Product Selection Permitted - dicyclomine 20 mg Oral Tablet - take 1 tablet by ORAL route 4 times per day; 30 tablet; Refills: 0, Product cp Selection Permitted Signatures: Dispatcher [employer] Krystian Rushing MD MD cha Page, Corey, PA PA cp Kirt Cantu, RN RN bp Zhanna Koch RN RN lg3 Corrections: (The following items were deleted from the chart) 07:00 06:58 PMHx: Diverticulitis; lg3 lg3 07:00 06:58 PMHx: Hypothyroidism; lg3 lg3 07:00 06:58 PMHx: Hypertension; lg3 lg3 07:00 06:58 PMHx: High Cholesterol; lg3 lg3 07:00 06:58 PMHx: Arthritis; lg3 lg3
--- NOTE | 2021-04-03 12:14 | ER ---
Nurse's Notes [facility] Name: Alejandra Rodríguez Age: 60 yrs Sex: Female : 1960 Arrival Date: 04/03/2021 Time: 06:38 Bed 19 Private MD: Nadine Lomax K Diagnosis: Abdominal pain, unspecified Presentation: 04/03 06:56 Chief complaint: Patient states: "My stomach is cramping, hurting really bad. This has lg3 been going on for a couple of hours. I took some Tylenol but it didn't help any.". Coronavirus screen: Vaccine status: Patient reports receiving the 2nd dose of the covid vaccine. [employer]. Ebola Screen: Patient negative for fever greater than or equal to 101.5 degrees Fahrenheit, and additional compatible Ebola Virus Disease symptoms Patient denies exposure to infectious person. Patient denies travel to an Ebola-affected area in the 21 days before illness onset. Initial Sepsis Screen: Does the patient meet any 2 criteria? No. Patient's initial sepsis screen is negative. Does the patient have a suspected source of infection? No. Patient's initial sepsis screen is negative. Risk Assessment: Do you want to hurt yourself or someone else? Patient reports no desire to harm self or others. Onset of symptoms was April 02, 2021 at 23:00. 06:56 Acuity: JUN 3 lg3 06:56 Method Of Arrival: Wheelchair lg3 Triage Assessment: 06:58 General: Appears in no apparent distress. uncomfortable, Behavior is calm, cooperative, lg3 appropriate for age. Pain: Pain currently is 8 out of 10 on a pain scale. Quality of pain is described as crampy. GI: Reports Pain is 8 out of 10 on a pain scale. Historical: - Allergies: 06:58 TETRACYCLINES; lg3 - Home Meds: 06:58 amlodipine 2.5 mg tab 1 tab once daily [Active]; atorvastatin 10 mg Oral tab 1 tab once lg3 daily [Active]; levothyroxine 88 mcg tab 1 tab once daily [Active]; orencia 750 mg [Active]; - Immunization history:: Flu vaccine is not up to date. - Social history:: Smoking status: Patient denies any tobacco usage or history of. Screenin:00 Abuse screen: Denies threats or abuse. Denies injuries from another. Nutritional bp screening: No deficits noted. Tuberculosis screening: No symptoms or risk factors identified. Fall Risk None identified. Assessment: 07:00 General: SEE TRIAGE NOTE. bp 09:00 Reassessment: No changes from previously documented assessment. Patient and/or family bp updated on plan of care and expected duration. Pain level reassessed. 10:24 Reassessment: PT RETURNED FROM CT. bp 11:30 Reassessment: PO CHALLENGE SUCCESSFUL. PROVIDER NOTIFIED. bp 12:18 Reassessment: PT D/C HOME AMBULATORY WITH FAMILY. DX WITH NONSPECIFIC ABDOMINAL PAIN. bp Vital Signs: 06:56 BP 131 / 54; Pulse 56; Resp 18; Temp 97.8; Pulse Ox 97% on R/A; Weight 86.18 kg; Height lg3 5 ft. 3 in. (160.02 cm); Pain 8/10; 09:00 BP 136 / 70; Pulse 50; Resp 16; Pulse Ox 99% ; bp 10:24 BP 130 / 64; Pulse 59; Resp 16; Pulse Ox 99% ; bp 11:30 BP 127 / 71; Pulse 54; Resp 17; Pulse Ox 99% ; bp 12:20 BP 131 / 65; Pulse 59; Resp 17; Pulse Ox 98% ; bp 06:56 Body Mass Index 33.66 (86.18 kg, 160.02 cm) lg3 ED Course: 06:38 Patient arrived in ED. es 06:39 Nadine Lomax MD is Private Physician. es 06:40 Krystian Wheat PA [facility]. cp 06:40 Krystian Esposito MD is Attending Physician. cp 06:58 Triage completed. lg3 06:58 Arm band placed on left wrist. lg3 07:00 Patient has correct armband on for positive identification. Bed in low position. Call bp light in reach. Side rails up X2. Adult w/ patient. 07:05 Kirt Cantu, CRISTOBAL is Primary Nurse. bp 07:30 Inserted saline lock: 20 gauge in right antecubital area, using aseptic technique. bp Blood collected. 08:00 XRAY Chest (1 view) In Process Unspecified. EDMS 10:15 CT Abd/Pelvis - IV Contrast Only In Process Unspecified. EDMS 12:20 No provider procedures requiring assistance completed. IV discontinued, intact, bp bleeding controlled, No redness/swelling at site. Pressure dressing applied. Administered Medications: 07:30 Drug: Zofran (Ondansetron) 4 mg Route: IVP; Site: right antecubital; bp 10:23 Follow up: Response: No adverse reaction bp 07:30 Drug: morphine 4 mg Route: IVP; Site: right antecubital; bp 10:23 Follow up: Response: Pain is decreased bp 07:30 Drug: NS 0.9% 500 ml Route: IV; Rate: bolus; Site: right antecubital; bp 12:21 Follow up: IV Status: Completed infusion; IV Intake: 500ml bp 07:30 Drug: NS 0.9% 500 ml Route: IV; Rate: 125 ml/hr; Site: right antecubital; bp 12:21 Follow up: IV Status: Completed infusion; IV Intake: 500ml bp 10:23 Drug: morphine 4 mg Route: IVP; Site: right antecubital; bp 11:03 Follow up: Response: Pain is decreased bp 11:00 Drug: Bentyl (dicyclomine) 20 mg Route: PO; bp 12:21 Follow up: Response: No adverse reaction bp 11:30 Drug: GI Cocktail without - (Maalox Suspension 30 ml, Lidocaine Liquid 2 % 15 bp ml) Route: PO; 12:21 Follow up: Response: No adverse reaction bp Intake: 12:21 IV: 500ml; Total: 500ml. bp 12:21 IV: 500ml; Total: 1000ml. bp Outcome: 11:49 Discharge ordered by MD. cp 12:20 Discharged to home ambulatory, with family. bp 12:20 Condition: stable 12:20 Discharge instructions given to patient, Instructed on discharge instructions, follow up and referral plans. medication usage, Demonstrated understanding of instructions, follow-up care, medications, Prescriptions given X 3. 12:22 Patient left the ED. bp Signatures: Dispatcher [employer] EDBonnie Booker Corey, PA PA cp Peltier, Brian, RN RN bp Gibson, Lacie, RN RN lg3 Corrections: (The following items were deleted from the chart) 07:00 06:58 PMHx: Diverticulitis; lg3 lg3 07:00 06:58 PMHx: Hypothyroidism; lg3 lg3 07:00 06:58 PMHx: Hypertension; lg3 lg3 07:00 06:58 PMHx: High Cholesterol; lg3 lg3 07:00 06:58 PMHx: Arthritis; lg3 lg3
[2021-04-03 12:38] VITALS: TEMP 97.8
[2021-04-03 12:43] VITALS: BP 131/65; O2SAT 98
[2021-04-03 18:12] LABS: Magnesium 1.9
--- NOTE | 2021-04-04 13:08 | EKG ---
Test Date: 2021-04-03 Test Time: 07:33:49 Finish Machine Tender: OPHELIA MEASUREMENT RESULTS: Intervals: Rate: 51 SD: 120 QRSD: 84 QT: 462 QTc: 425 [place]: P: 56 SD: 120 QRS: 63 T: 54 INTERPRETIVE STATEMENTS: Sinus bradycardia Otherwise normal ECG Compared to ECG 12/03/2017 13:51:24 Sinus rhythm no longer present Electronically Signed On 04-04-21 13:03:26 [employer]CTOR[employer] RESE[employer] ASSOCIATE by Mihir Hathaway
== END 2021-04-03 12:22 | disposition home or self-care (01) ==
LOC: ER 06:34
DX: R10.9 Unspecified abdominal pain (principal); Z88.1 Allergy status to other antibiotic agents
CPT/HCPCS: 96361; 93005; 85025; 80048; 36415; 83735; 85610; 80076; 84484; 83690; 74177; 71045; 96375; 96374; 99284; Q9967; J7030; J2405; 81003; 81015

== ENCOUNTER 2021-05-26 18:18 | Emergency (ER) | payer OTHER ==
--- OUTSIDE RECORDS SUMMARY | 2021-05-26 18:22 | XMS REPORT | Continuity of Care Document ---
:1960 Author Organization [facility] t Address [address] [place] [address] Care Team Providers Name Role Phone Lana Lomax Primary Care Physician Aida Attending Clinician Unavailable Arcadio JAIN, T Attending Clinician Unavailable Only, Test Attending Clinician Unavailable Conrad TORRES, Dany Attending Clinician CONRAD, Dany Attending Clinician Unavailable Doctor Unassigned, Name Attending Clinician Unavailable Carlos Goldberg Attending Clinician Unavailable SHMUEL MACHADO Attending Clinician Unavailable Aida Admitting Clinician Unavailable Carlos Goldberg Admitting Clinician Unavailable SHMUEL MACHADO Admitting Clinician Unavailable Payers Payer Name Policy Type Policy Number Effective Date Expiration Date S ource Problems This patient has no known problems. Allergies, Adverse Reactions, Alerts Allergy Allergy Status Severity Reaction(s) Onset Inactive Treating Comm ents Source Name Type Date Date Clinician tetracyc DA Active SV 2020-0 [facility] line 1-21 Clear 00:00: [place] [facility] latex DA Active CO [facility] 1-21 Clear 00:00: [place] [facility] certoliz DA Active SV 0 [facility] umab 1-21 Clear pegol 00:00: [facility] tetracyc DA Active SV HIVES,SHORTN 2020- HC A line ESS OF 1-21 Clear BREATH 00:00: [place] [facility] latex DA Active CO RASH,ITCHING 2020-0 [facility] 1-21 Clear 00:00: [place] 00 [facility] certoliz DA Active SV UNKNOWN 2020-0 [facility] umab 1-21 Clear pegol 00:00: [place] 00 [facility] tetracyc DA Active U 2020-0 [facility] line 1-24 Clear 00:00: [place] 00 [facility] latex DA Active U 2020-0 [facility] 1-24 Clear 00:00: [place] 00 [facility] certoliz DA Active U 2020-0 [facility] umab 1-24 Clear pegol 00:00: [place] 00 [facility] tetracyc DA Active U UNKNOWN 2020-0 [facility] line 1-24 Clear 00:00: [place] 00 [facility] latex DA Active U UNKNOWN 2020-0 [facility] 1-24 Clear 00:00: [place] 00 [facility] certoliz DA Active U UNKNOWN 2020-0 [facility] umab 1-24 Clear pegol 00:00: [place] 00 [facility] NO KNOWN Drug Active Univers ALLERGIE Class ity of [facility] Social History Social Habit Start Date Stop Date Quantity Comments Source Exposure to Yes [facility] SARS-CoV-2 (event) [facility] Sex Assigned At [birth year] [facility] 00:00:00 00:00:00 [facility] Smoking Status Start Date Stop Date Source Unknown if ever smoked [facility] Medications This patient has no known medications. Immunizations Ordered Filled Immunization Date Status Comments [facility] e Immunization Name Name SARS-COV-2 COVID-19 2020-05-20 Completed Unive rsity of PFIZER VACCINE 00:00:00 [facility] SARS-COV-2 COVID-19 2020-05-20 Completed Unive rsity of PFIZER VACCINE 00:00:00 [facility] SARS-COV-2 COVID-19 2020-05-20 Completed Unive rsity of PFIZER VACCINE 00:00:00 [facility] SARS-COV-2 COVID-19 2020-05-20 Completed Unive rsity of PFIZER VACCINE 00:00:00 [facility] SARS-COV-2 COVID-19 2020-05-20 Completed Unive rsity of PFIZER VACCINE 00:00:00 [facility] SARS-COV-2 COVID-19 2020-05-20 Completed Unive rsity of PFIZER VACCINE 00:00:00 [facility] SARS-COV-2 COVID-19 2020-04-29 Completed Unive rsity of PFIZER VACCINE 00:00:00 [facility] SARS-COV-2 COVID-19 2020-04-29 Completed Unive rsity of PFIZER VACCINE 00:00:00 [facility] SARS-COV-2 COVID-19 2020-04-29 Completed Unive rsity of PFIZER VACCINE 00:00:00 [facility] SARS-COV-2 COVID-19 2020-04-29 Completed Unive rsity of PFIZER VACCINE 00:00:00 [facility] SARS-COV-2 COVID-19 2020-04-29 Completed Unive rsity of PFIZER VACCINE 00:00:00 [facility] SARS-COV-2 COVID-19 2020-04-29 Completed Unive rsity of PFIZER VACCINE 00:00:00 [facility] Procedures Procedure Date / Time Performed Performing Clinician Sour e ASSIGNMENT OF BENEFITS 2020-10-26 16:29:02 Doctor Unassigned, No [facility] [id number] 2020-03-27 00:00:00 [facility]AC[facility] [id number] 2020-03-27 00:00:00 [facility] [id number] 2020-03-27 00:00:00 [facility] [id number] 2020-03-27 00:00:00 [facility] [id number] 2020-03-27 00:00:00 [facility] Encounters Start End Encounter Admission Attending Care Care Encounter Source Date/Time Date/Time Type Type Clinicians Facility Department ID 2020-03-27 Inpatient EL Voloyiannis [facility] ADMI [id number] [facility] 08:30:00 , Lonnie [id number] [facility] 2020-03-23 Inpatient Voloyiannis [facility]ACL [facility] [id number] -20 [facility] 08:30:00 , Lonnie [id number] [facility] 2020-10-27 2020-10-27 Letter MIRZA Ervin [id number] Univers 00:00:00 00:00:00 (Out) Digna [place] [id number] [facility] 4.2.7.2.686 Adam as [phone] [facility] [address] 2020-10-26 2020-10-26 Laboratory Only, Adc Test [facility] 1.2.840. 114 [id number] Univers 11:33:17 11:48:17 Only Pj Martines 350.1.13.10 ity [facility] 4.2.7.2.686 [facility] [phone] [facility] [address] 2020-10-26 2020-10-26 Outpatient R CONRAD [facility] [id number] Univers 11:00:00 11:00:00 PJ ity [facility] 2020-10-26 2020-10-26 Orders Doctor BLUE [id number] Univers 00:00:00 00:00:00 Only Unassigned, ASHU 350.1.13.[address] [place] [facility] 4.2.7.2.686 Adam as [phone] [facility] [address] 2019-03-27 2019-03-27 Outpatient DESHAWN Goldberg SURG [id number] [facility] 09:00:00 09:00:00 [facility] [id number] [facility] Results Test Description Test Time Test Comments Results Result Comments Source SURGICAL PATH SPECIMENS 2020-03-30 17:22:00 Test Item Value Reference Range Interpretation Comme nts SURGICAL RUN DATE: PATH 03/30/20 [facility] *LIVE* PAGE 1 RUN TIME: 1722 SPECIMENS Specimen Inquiry RUN USER: INTERFACE (test code = SURG) PATIENT: LON CROWE LOC: Bob U #: [id number] AGE/SX: 59/ F [facility] RE03/27/20REG DR: Lonnie Parra : 56 BED: 1 DIS: 03/29/20 STATUS: DIS IN TLOC: SPEC #: [id number] RECD: STATUS: KARIS BERTRAND #: [id number] TIMMY: 03/28/[address]: Lonnie Parra MD ENTERED: 03/29/20 SP TYPE: SURG SPEC OTHR DR: Danae Samuels MD ORDERED: GROSS AND MICRO CODES: [id number] - COLON, NOS COPIES TO: Danae Goldberg MD [address] [place] [address] [address] [place] [address] [email or web address] Lonnie Parra MD [address] [place] [address] [address] [place] [address] [email or web address] PROCEDURES: GROSS AND MICRO (Incomplete) TISSUES: 1. COLON, NOS - Colon, sigmoid, prox. rect um 2 rings, FINAL DIAGNOSIS Colon, sigmoid, prox. rectum 2 rings, excision: Perforate d diverticulitis with purulent acute serositis and adhesion; viable margins or resection. G ROSS AND MICROSCOPIC GROSS EXAMINATION: received in formalin labeled " Sigmoid colon proximal rectum, 2 anastomotic rings " include a segment of colon without orientation, measuring 29 c m in length, 4 cm in diameter. Half serosa is gregorio-pink glistening, and the other half serosa is da rk brown, covered with exudate. Multiple diverticuli identified on the mucosa. Deputy Probation Officer sections submitted (A)-( H). MICROSCOPIC EXAMINATION: A microscopic examination was performed to arrive at the diagnostic conclusion reported. CONTINUED ON NEXT PAGE RUN DATE: 03/30/20 [facility] *LIVE* PAGE 2 RUN TIME: 1722 Specimen Inquiry RUN USER: INTERFACE SPEC #: [id number] PATIENT: LON CROWE #[id number] (Continued) POST-OP DIAGNOSIS Diverticulosis with abscess PRE-OP DIAGNOSIS Diverticulosis with abscess Signed SIGNATURE ON FILE Bonnie Dent 03/30/20 1722 END OF REPORT BASIC METABOLIC [id number] 08:04:00 Test Item Value Reference Range Interpretation Comments SODIUM (test code = NA) 141 mEq/L 134-147 N POTASSIUM (test code = 3.2 mEq/L 3.4-5.0 L K) CHLORIDE (test code = 110 mEq/L 100-108 H CL) CARBON DIOXIDE (test 26 mEq/l 21-33 N code = CO2) ANION GAP (test code = 8 0-20 N GAP) GLUCOSE (test code = 86 mg/dL 70-110 GLU) BLOOD UREA NITROGEN 10 mg/dL 7-18 (test code = BUN) GLOMERULAR FILTRATION 101.6 80-90 H Units of measure = RATE (test code = GFR) ml/mi n/1.73 m2 CREATININE (test code = 0.6 mg/dL 0.6-1.3 CREAT) CALCIUM (test code = 8.6 mg/dL 8.0-10.5 N CA) BASIC METABOLIC [id number] 05:15:00 Test Item Value Reference Range Interpretation Comments SODIUM (test code = NA) 138 mEq/L 134-147 N POTASSIUM (test code = 3.3 mEq/L 3.4-5.0 L K) CHLORIDE (test code = 106 mEq/L 100-108 N CL) CARBON DIOXIDE (test 26 mEq/l 21-33 N code = CO2) ANION GAP (test code = 9 0-20 N GAP) GLUCOSE (test code = 124 mg/dL 70-110 H GLU) BLOOD UREA NITROGEN 18 mg/dL 7-18 (test code = BUN) GLOMERULAR FILTRATION 23.9 80-90 L Units of measure = RATE (test code = GFR) ml/mi n/1.73 m2 CREATININE (test code = 2.1 mg/dL 0.6-1.3 H CREAT) CALCIUM (test code = 8.3 mg/dL 8.0-10.5 N CA) [id number] 05:15:00 Test Item Value Reference Range Interpretation Comments PHOSPHOROUS (test code = PHOS) 4.2 MG/DL 2.5-4.9 N [id number] 05:15:00 Test Item Value Reference Range Interpretation Comments MAGNESIUM (test code = MAG) 2.12 mg/dL 1.80-2.40 N CALCIUM [id number] 05:15:00 Test Item Value Reference Range Interpretation Comments CALCIUM IONIZED (test code = KIKI) 1.12 MMOL/L 1.12-1.32 N BASIC METABOLIC [id number] 04:57:00 Test Item Value Reference Range Interpretation Comments SODIUM (test code = NA) mEq/L 134-147 POTASSIUM (test code = K) mEq/L 3.4-5.0 CHLORIDE (test code = CL) mEq/L 100-108 CARBON DIOXIDE (test code = CO2) mEq/l 21-33 ANION GAP (test code = GAP) 0-20 GLUCOSE (test code = GLU) mg/dL 70-110 BLOOD UREA NITROGEN (test code = BUN) mg/dL 7-18 GLOMERULAR FILTRATION RATE (test code 80-90 = GFR) CREATININE (test code = CREAT) mg/dL 0.6-1.3 CALCIUM (test code = CA) mg/dL 8.0-10.5 [id number] 04:57:00 Test Item Value Reference Range Interpretation Comments PHOSPHOROUS (test code = PHOS) MG/DL 2.5-4.9 [id number] 04:57:00 Test Item Value Reference Range Interpretation Comments MAGNESIUM (test code = MAG) mg/dL 1.80-2.40 CALCIUM [id number] 04:57:00 Test Item Value Reference Range Interpretation Comments CALCIUM IONIZED (test code = KIKI) 1.12 MMOL/L 1.12-1.32 N HGB [id number] 04:57:00 Test Item Value Reference Range Interpretation Comments HEMOGLOBIN (test code = HGB) 11.8 g/dL 11.0-15.0 N HEMATOCRIT (test code = HCT) 36.3 % 33.0-45.0 N BASIC METABOLIC [id number] 07:14:00 Test Item Value Reference Range Interpretation Comments SODIUM (test code = NA) 137 mEq/L 134-147 N POTASSIUM (test code = 4.8 mEq/L 3.4-5.0 N K) CHLORIDE (test code = 105 mEq/L 100-108 N CL) CARBON DIOXIDE (test 26 mEq/l 21-33 N code = CO2) ANION GAP (test code = 11 0-20 N GAP) GLUCOSE (test code = 99 mg/dL 70-110 N GLU) BLOOD UREA NITROGEN 12 mg/dL 7-18 N (test code = BUN) GLOMERULAR FILTRATION 72.9 80-90 L Units of measure = RATE (test code = GFR) ml/mi n/1.73 m2 CREATININE (test code = 0.8 mg/dL 0.6-1.3 N CREAT) CALCIUM (test code = 8.8 mg/dL 8.0-10.5 N CA) Novel Coronavirus 2018 [id number] 02:41:00 Test Item Value Reference Range Interpretation Comments Novel Coronavirus Negative Negative Positive r esults are 2019 Inhouse (test indicativ e of the presence code = COVNONPUI) ofSARS-CoV -2 RNA, clinical correlation wit h patient historyand othe r diagnostic info rmation is necessary to determinepatien t infection status. Positiv e results do not rule out bacterial infection or co -infection with other viru ses. Negative result s do not preclude SARS-C oV-2 infection andsh ould not be used as the maximo e basis for patient managementdecis ions. Negative result s must be combined with otherclinical observations, p atient history, and epidemiological information . Detection of SARS-CoV-2 RNA may be affe cted bysample collec tion methods, storag e conditions, and /or stageof infection. Alicia l RNA mutations, vacc inations, antiviraltherap eutics, antibiotics, chemotherapeuti c orimmunosuppres daisy drugs have not been e valuated for effectson d etection. Results are for the identification of SARS-CoV-2 RNA usingthe Purcell M2000 Sy stem under the FDA Emergen krunal mcnamara. The testing is perf ormed by sampson tapia in the procedures for the Purcell M2000 molecular diagnostic SARS-CoV-2 zelalem miller in vitro. - XR CHEST 2 [id number] 10:05:00 [facility] 1960 Sex: F FAX: Danae Godoy MD [phone] [place]: St: PRE FAX: Gema Patel [phone] Name: LON CROWE [facility] : 1960 Age/S: 59/F [address] [place] [address] Unit #: [id number] Loc: [place] [address] Phys: Lonnie Parra MD Acct: [id number] Dis Date: Status: PRE IN PHONE #: [phone] Exam Date: 03/23/2020 0944 FAX #: [phone] Reason: PREOP EXAMS: CPT CODE: [id number] XR CHEST 2 V [id number] EXAM: XR CHEST 2 VIEWS DATE: 03/23/2020 8:30 AM : 1960; Age: 59 years y/o Female INDICATION: Diverticulitis with abscess, PREOP COMPARISON: None. TECHNIQUE: PA and lateral chest radiographs. FINDINGS: Lines, tubes and hardware: None. Lungs and pleura: The lungs are clear. No pleural effusion. Heart and mediastinum: The heart size is normal for technique. The mediastinal contours are normal. Pulmonary vascularity is normal. IMPRESSION: No acute cardiopulmonary process. SL: [id number] at 1005 Reported and signed by: Stephany Martines D.O. CC: Danae Goldberg MD; Lonnie Parra MD Technologist: Justina Armstrong RT(R) Trnscrd Date/Time/By: 03/23/2020 (1004) : By: [email or web address] Orig Print D/T: S: 03/23/2020 (1007) PAGE 1 Signed ReportPROTHROMBIN [id number] 09:48:00 Test Item Value Reference Range Interpretation Comments PROTHROMBIN TIME 11.1 SECONDS 9.3-12.9 N PATIENT (test code = PTP) INTERNATIONAL NORMAL 1.0 0.8-1.2 N TARGET RATIO (test code = INR BY IN DICATION INR) Indication INR1. Prophyl axis of venous thrombos is 2.0 - 3. 0 (orthopedic willian donny), Prophylaxis of venous thrombos is (other than hig h-risk surgery), Linda tment of Deep Vein Thrombosis/Pulm onary Embolism, Preve ntion of systemic emb olism - Tissue heart va lves, Acute Myocardia l Infarction (to prevent systemic embo lism), Valvular heart disease, Atri al Fibrillation, Bileaflet mecha nical valve in aortic position.2. Mec hanical prosthetic valv es (high risk), 2.5 - 3.5 Presence of Lupus Anticoagu lant or Antiphospholi pid Antibodies, Pre vention of systemic e mbolism - Acute Myocard ial Infarction (t o prevent recurre nt infarct). THROMBOPLASTIN TIME [id number] 09:48:00 Test Item Value Reference Range Interpretation Comments THROMBOPLASTIN TIME 45.3 Seconds 25.0-39.5 H Ther apeutic PARTIAL (test code = Range: 50.4 - 88.3 PTT) Seconds Effective 06/16/2018 BASIC METABOLIC [id number] 09:46:00 Test Item Value Reference Range Interpretation Comments SODIUM (test code = NA) 146 mEq/L 134-147 N POTASSIUM (test code = 3.8 mEq/L 3.4-5.0 N K) CHLORIDE (test code = 111 mEq/L 100-108 H CL) CARBON DIOXIDE (test 29 mEq/l 21-33 N code = CO2) ANION GAP (test code = 10 0-20 N GAP) GLUCOSE (test code = 103 mg/dL 70-110 N GLU) BLOOD UREA NITROGEN 10 mg/dL 7-18 N (test code = BUN) GLOMERULAR FILTRATION 85.1 80-90 N Units of measure = RATE (test code = GFR) ml/mi n/1.73 m2 CREATININE (test code = 0.7 mg/dL 0.6-1.3 N CREAT) CALCIUM (test code = 10.1 mg/dL 8.0-10.5 N CA) PROTHROMBIN [id number] 09:45:00 Test Item Value Reference Range Interpretation Comments PROTHROMBIN TIME 11.1 SECONDS 9.3-12.9 N PATIENT (test code = PTP) INTERNATIONAL NORMAL 1.0 0.8-1.2 N TARGET RATIO (test code = INR BY IN DICATION INR) Indication INR1. Prophyl axis of venous thrombos is 2.0 - 3. 0 (orthopedic willian donny), Prophylaxis of venous thrombos is (other than hig h-risk surgery), Linda tment of Deep Vein Thrombosis/Pulm onary Embolism, Preve ntion of systemic emb olism - Tissue heart va lves, Acute Myocardia l Infarction (to prevent systemic embo lism), Valvular heart disease, Atri al Fibrillation, Bileaflet mecha nical valve in aortic position.2. Mec hanical prosthetic valv es (high risk), 2.5 - 3.5 Presence of Lupus Anticoagu lant or Antiphospholi pid Antibodies, Pre vention of systemic e mbolism - Acute Myocard ial Infarction (t o prevent recurre nt infarct). THROMBOPLASTIN TIME [id number] 09:45:00 Test Item Value Reference Range Interpretation Comments THROMBOPLASTIN TIME PARTIAL (test Seconds 25.0-39.5 code = PTT) CBC W/AUTO [id number] 09:29:00 Test Item Value Reference Range Interpretation Comments WHITE BLOOD CELL (test code = 7.0 x10 3/uL 4.5-11.0 N WBC) RED BLOOD CELL (test code = 4.74 x10 6/uL 3.54-5.02 N RBC) HEMOGLOBIN (test code = HGB) 13.1 g/dL 11.0-15.0 N HEMATOCRIT (test code = HCT) 41.5 % 33.0-45.0 N MEAN CELL VOLUME (test code = 87.6 fL 81.0-99.0 N MCV) MEAN CELL HGB (test code = MCH) 27.6 pg 27.0-33.0 N MEAN CELL HGB CONCETRATION 31.6 g/dL 33.0-37.0 L (test code = MCHC) RED CELL DISTRIBUTION WIDTH CV 14.9 % 11.5-14.5 H (test code = RDW) RED CELL DISTRIBUTION WIDTH SD 47.9 fL 37.0-54.0 N (test code = RDW-SD) PLATELET COUNT (test code = 303 x10 3/uL 150-400 N PLT) MEAN PLATELET VOLUME (test code 10.2 fL 7.0-9.0 H = MPV) NEUTROPHIL % (test code = NT%) 50.2 % 56.0-77.0 L IMMATURE GRANULOCYTE % (test 0.3 % 0.0-2.0 N code = IG%) LYMPHOCYTE % (test code = LY%) 40.7 % 14.0-32.0 H MONOCYTE % (test code = MO%) 6.7 % 4.8-9.0 N EOSINOPHIL % (test code = EO%) 1.4 % 0.3-3.7 N BASOPHIL % (test code = BA%) 0.7 % 0.0-2.0 N NUCLEATED RBC % (test code = 0.0 % 0-0 N NRBC%) NEUTROPHIL # (test code = NT#) 3.53 x10 3/uL 2.0-7.6 N IMMATURE GRANULOCYTE # (test 0.02 x10 3/uL 0.00-0.03 N code = IG#) LYMPHOCYTE # (test code = LY#) 2.86 x10 3/uL 1.0-3.8 N MONOCYTE # (test code = MO#) 0.47 x10 3/uL 0.1-0.8 N EOSINOPHIL # (test code = EO#) 0.10 x10 3/uL 0.0-0.2 N BASOPHIL # (test code = BA#) 0.05 x10 3/uL 0.0-0.2 N NUCLEATED RBC # (test code = 0.00 x10 3/uL 0.0-0.1 N NRBC#) MANUAL DIFF REQUIRED (test code NO = MDIFF) PROTHROMBIN [id number] 06:14:00 Test Item Value Reference Range Interpretation Comments PROTHROMBIN TIME 9.7 SECONDS 9.6-11.6 N PATIENT (test code = PTP) INTERNATIONAL NORMAL 0.9 0.8-1.1 N The INR is to be RATIO (test code = INR) used only for monitoring oral anticoagulantth erap y. INDICATION I NR VALUE ---- ---- ---- -------1. Prophylaxis, de ep venous thrombos is, including hig h risk surgery. 2.0 - 3.0 2. Prophylaxis, de ep venous thrombos is, hip surgery, treatment for d eep venous thrombosis or pulmonary prevention of systemic emboli sm in patients wit h valvular heart disease, atrial fibrillation, tissue heart va lve, or acute myocar dial infarction. 2.0 - 3 .0 3. Mechanical prosthesis hear t valves, recurrent syste kamar embolism. 3.0 - 4.5 PTT [id number] 06:14:00 Test Item Value Reference Range Interpretation Comments PTT ACTIVATED (test code = APTT) 35.9 SECONDS 22.0-33.0 H BASIC METABOLIC [id number] 06:12:00 Test Item Value Reference Range Interpretation Comments SODIUM (test code = 139 MMOL/L 137-145 N NA) POTASSIUM (test code = 4.0 MMOL/L 3.5-5.1 N K) CHLORIDE (test code = 103 MMOL/L 98-107 N CL) CARBON DIOXIDE (test 27 MMOL/L 22-30 N code = CO2) GLUCOSE (test code = 114 MG/DL 74-106 H GLU) BLOOD UREA NITROGEN 13 MG/DL 7-17 N (test code = BUN) GLOMERULAR FILTRATION > 60 Report ing units: RATE (test code = GFR) ml/mi n/1.73 m2 (Modified MDRD Formula)Referen ce Range: > or = 6 0 ml/min/1.73 m2 CREATININE (test code 0.60 MG/DL 0.52-1.04 N = CREAT) CALCIUM (test code = 9.4 MG/DL 8.4-10.2 N CA) LIPID PROFILE (CORONARY RISK)2019-03-27 06:12:00 Test Item Value Reference Range Interpretation Comments TRIGLYCERIDES (test 126 MG/DL TRIGLYCE RIDES code = TRIG) REFERENCE RANGE:Normal: < 150 mg/dLBorderline High: 150-199 mg/dLHi gh: 200-499 mg/dLVe ry High: >=500 mg/ dL CHOLESTEROL (test code 186 MG/DL <200 = CHOL) HDL CHOLESTEROL (test 47 MG/DL 40-59 N code = HDL) LIPOPROTEIN LDL (test 120 MG/DL 0-99 H code = LDL) OPTIMAL........ .<100 mg/dLNEAR OPTIMAL/ABOVE OPTIMAL........ .100-12 9 mg/dL BORDERLINE HIGH.........13 0-159 mg/dL HIGH.........16 0-189 mg/dL VERY HIGH...... ...>/= 190 mg/dL [id number] 06:12:00 Test Item Value Reference Range Interpretation Comments MAGNESIUM (test code = MAG) 2.2 MG/DL 1.6-2.3 N BASIC METABOLIC [id number] 06:02:00 Test Item Value Reference Range Interpretation Comments SODIUM (test code = 139 MMOL/L 137-145 N NA) POTASSIUM (test code = 4.0 MMOL/L 3.5-5.1 N K) CHLORIDE (test code = 103 MMOL/L 98-107 N CL) CARBON DIOXIDE (test 27 MMOL/L 22-30 N code = CO2) GLUCOSE (test code = 114 MG/DL 74-106 H GLU) BLOOD UREA NITROGEN 13 MG/DL 7-17 N (test code = BUN) GLOMERULAR FILTRATION > 60 Report ing units: RATE (test code = GFR) ml/mi n/1.73 m2 (Modified MDRD Formula)Referen ce Range: > or = 6 0 ml/min/1.73 m2 CREATININE (test code 0.60 MG/DL 0.52-1.04 N = CREAT) CALCIUM (test code = 9.4 MG/DL 8.4-10.2 N CA) LIPID PROFILE (CORONARY RISK)2019-03-27 06:02:00 Test Item Value Reference Range Interpretation Comments TRIGLYCERIDES (test 126 MG/DL TRIGLYCE RIDES code = TRIG) REFERENCE RANGE:Normal: < 150 mg/dLBorderline High: 150-199 mg/dLHi gh: 200-499 mg/dLVe ry High: >=500 mg/ dL CHOLESTEROL (test code 186 MG/DL <200 = CHOL) HDL CHOLESTEROL (test 47 MG/DL 40-59 N code = HDL) LIPOPROTEIN LDL (test MG/DL 0-99 code = LDL) [id number] 06:02:00 Test Item Value Reference Range Interpretation Comments MAGNESIUM (test code = MAG) 2.2 MG/DL 1.6-2.3 N BASIC METABOLIC [id number] 06:01:00 Test Item Value Reference Range Interpretation Comments SODIUM (test code = 139 MMOL/L 137-145 N NA) POTASSIUM (test code = 4.0 MMOL/L 3.5-5.1 N K) CHLORIDE (test code = 103 MMOL/L 98-107 N CL) CARBON DIOXIDE (test 27 MMOL/L 22-30 N code = CO2) GLUCOSE (test code = 114 MG/DL 74-106 H GLU) BLOOD UREA NITROGEN 13 MG/DL 7-17 N (test code = BUN) GLOMERULAR FILTRATION > 60 Report ing units: RATE (test code = GFR) ml/mi n/1.73 m2 (Modified MDRD Formula)Referen ce Range: > or = 6 0 ml/min/1.73 m2 CREATININE (test code 0.60 MG/DL 0.52-1.04 N = CREAT) CALCIUM (test code = MG/DL 8.7-9.7 CA) LIPID PROFILE (CORONARY RISK)2019-03-27 06:01:00 Test Item Value Reference Range Interpretation Comments TRIGLYCERIDES (test 126 MG/DL TRIGLYCE RIDES code = TRIG) REFERENCE RANGE:Normal: < 150 mg/dLBorderline High: 150-199 mg/dLHi gh: 200-499 mg/dLVe ry High: >=500 mg/ dL CHOLESTEROL (test code 186 MG/DL <200 = CHOL) HDL CHOLESTEROL (test MG/DL 40-59 code = HDL) LIPOPROTEIN LDL (test MG/DL 0-99 code = LDL) [id number] 06:01:00 Test Item Value Reference Range Interpretation Comments MAGNESIUM (test code = MAG) MG/DL 1.6-2.3 BASIC METABOLIC [id number] 05:58:00 Test Item Value Reference Range Interpretation Comments SODIUM (test code = NA) 139 MMOL/L 137-145 N POTASSIUM (test code = K) 4.0 MMOL/L 3.5-5.1 N CHLORIDE (test code = CL) 103 MMOL/L 98-107 N CARBON DIOXIDE (test code = CO2) MMOL/L 22-30 GLUCOSE (test code = GLU) MG/DL 74-106 BLOOD UREA NITROGEN (test code = MG/DL 7-17 BUN) GLOMERULAR FILTRATION RATE (test code = GFR) CREATININE (test code = CREAT) MG/DL 0.52-1.04 CALCIUM (test code = CA) MG/DL 8.7-9.7 LIPID PROFILE (CORONARY RISK)2019-03-27 05:58:00 Test Item Value Reference Range Interpretation Comments TRIGLYCERIDES (test code = TRIG) MG/DL CHOLESTEROL (test code = CHOL) MG/DL <200 HDL CHOLESTEROL (test code = HDL) MG/DL 40-59 LIPOPROTEIN LDL (test code = LDL) MG/DL 0-99 [id number] 05:58:00 Test Item Value Reference Range Interpretation Comments MAGNESIUM (test code = MAG) MG/DL 1.6-2.3 CBC W/AUTO [id number] 05:54:00 Test Item Value Reference Range Interpretation Comments WHITE BLOOD CELL (test code = 11.2 K/MM3 3.8-9.8 H WBC) RED BLOOD CELL (test code = 5.10 M/MM3 3.58-4.97 H RBC) HEMOGLOBIN (test code = HGB) 14.6 G/DL 11.2-14.9 N HEMATOCRIT (test code = HCT) 44.3 % 33.2-43.5 H MEAN CELL VOLUME (test code = 87 fL 80.7-99.1 N MCV) MEAN CELL HGB (test code = MCH) 28.6 pg 27.0-34.1 N MEAN CELL HGB CONCETRATION 33.0 % 32.2-35.7 N (test code = MCHC) RED CELL DISTRIBUTION WIDTH 14.6 % 12.1-15.2 N (test code = RDW) PLATELET COUNT (test code = 252 K/MM3 129-368 N PLT) MEAN PLATELET VOLUME (test code 10.6 fl 7.4-10.4 H = MPV) NEUTROPHIL % (test code = NT%) 74.5 % 43-75 N IMMATURE GRANULOCYTE % (test 0.3 % 0.0-2.0 N code = IG%) LYMPHOCYTE % (test code = LY%) 19.9 % 14-44 N MONOCYTE % (test code = MO%) 5.0 % 4-13 N EOSINOPHIL % (test code = EO%) 0.1 % 0-6 N BASOPHIL % (test code = BA%) 0.2 % 0-2 N NUCLEATED RBC % (test code = 0.0 % 0-1.0 N NRBC%) NEUTROPHIL # (test code = NT#) 8.36 K/mm3 2.0-7.6 H IMMATURE GRANULOCYTE # (test 0.03 x10 3/uL 0-0.03 N code = IG#) LYMPHOCYTE # (test code = LY#) 2.23 K/mm3 1.0-3.8 N MONOCYTE # (test code = MO#) 0.56 K/mm3 0.1-0.8 N EOSINOPHIL # (test code = EO#) 0.01 K/mm3 0.0-0.2 N BASOPHIL # (test code = BA#) 0.02 K/mm3 0.0-0.2 N NUCLEATED RBC # (test code = 0.00 K/mm3 0.0-0.1 N NRBC#) ANTI-MITOCHONDRIAL AB, REFLEX TO [id number] 12:17:00 Test Item Value Reference Range Interpretation Comments SCAN RESULT (test code = 3805127) [id number] 10:38:00 Test Item Value Reference Range Interpretation Comments ALPHA-1 ANTITRYPSIN (BEAKER) 178.00 mg/dL 90.00-200.00 (test code = 502) HERPES VIRUS ANTIBODY, [id number] 13:52:00 Test Item Value Reference Range Interpretation Comments HERPES VIRUS IGM (BEAKER) (test code Positive = 1808) HSV IgM 1 = PositiveHSV IgM 2 = [id number] 05:39:00 Test Item Value Reference Range Interpretation Comments PHOSPHORUS (BEAKER) (test code = 2.3 mg/dL 2.3-4.7 604) [id number] 05:39:00 Test Item Value Reference Range Interpretation Comments MAGNESIUM (BEAKER) (test code = 2.3 mg/dL 1.6-2.6 627) BASIC METABOLIC [id number] 05:39:00 Test Item Value Reference Range Interpretation Comments SODIUM (BEAKER) 139 meq/L 136-145 (test code = 381) POTASSIUM (BEAKER) 4.3 meq/L 3.5-5.1 (test code = 379) CHLORIDE (BEAKER) 107 meq/L 98-107 (test code = 382) CO2 (BEAKER) (test 25 meq/L 22-29 code = 355) BLOOD UREA NITROGEN 9 [...] APPLICABLE FOR DIALYSIS PATIEN TS. HEPATIC FUNCTION [id number] 05:39:00 Test Item Value Reference Range Interpretation [...] code = 402 U/L 6-55 H 347) [id number] 05:29:00 Test Item Value Reference Range Interpretation [...] 2.5-3.5 for patients with mechanical heart valves.PROTHROMBIN [id number] 05:28:00 Test Item Value Reference Range Interpretation [...] 0-1 PERCENT (BEAKER) (test code = 2801) [id number] 16:45:00 Test Item Value Reference Range Interpretation Comments FERRITIN (BEAKER) (test code = 361) 310 ng/mL 5-275 H HEPATITIS A ANTIBODY, [id number] 16:31:00 Test Item Value Reference Range Interpretation Comments HEPATITIS A IGG ANTIBODY (BEAKER) Reactive Nonreactive A (test code = 2797) HEPATITIS B SURFACE [id number] 16:26:00 Test Item Value Reference Range Interpretation Comments HEPATITIS B SURFACE ANTIBODY < mIU/mL <8.0 (BEAKER) (test code = 647) HEPATITIS B CORE ANTIBODY, [id number] 16:22:00 Test Item Value Reference Range Interpretation [...] H (test code = 364) BASIC METABOLIC [id number] 06:01:00 Test Item Value Reference Range Interpretation [...] S NOT APPLICABLE FOR DIALYSIS PATIEN TS. [id number] 05:58:00 Test Item Value Reference Range Interpretation Comments PHOSPHORUS (BEAKER) (test code = 1.6 mg/dL 2.3-4.7 L 604) [id number] 05:58:00 Test Item Value Reference Range Interpretation Comments MAGNESIUM (BEAKER) (test code = 2.0 mg/dL 1.6-2.6 627) HEPATIC FUNCTION [id number] 05:58:00 Test Item Value Reference Range Interpretation [...] code = 578 U/L 6-55 H 347) [id number] 05:12:00 Test Item Value Reference Range Interpretation [...] 2.5-3.5 for patients with mechanical heart valves.PROTHROMBIN [id number] 05:11:00 Test Item Value Reference Range Interpretation [...] 417) IMMATURE GRANULOCYTES-RELATIVE 0 % 0-1 PERCENT (KHUSHBOO) (test code = 2801) MR, ABDOMEN, [id number] 22:05:00FINAL REPORT MRCP, MRI of abdomen without [...] prior cholecystectomy. Diffuse hepatic steatosis. Signed: Manolo Skinner MDReport Verified Date/Time: 03/28/2017 22:05:22 Reading Location: [facility] B1 C013W Consult Reading Room POCT-GLUCOSE [id number] 13:06:00 Test Item Value Reference Range Interpretation Comments POC-GLUCOSE METER 76 mg/dL 70-[address] [facility] 67[address] (KHUSHBOO) (test code = [place] [address] 1538) VARICELLA ZOSTER ANTIBODY, [id number] 12:17:00 Test Item Value Reference Range Interpretation Comments VARICELLA ZOSTER IGG (AL) (KHUSHBOO) 3.4 Al (test code = 3197) VARICELLA ZOSTER RESULT INTERPRETATIONS: <=0.8 Al Nonreactive: Presumed non-immune to VZV 0.9-1.0 Al Equivocal >=1.1 Al Reactive: Presumed immune to VZVURINALYSIS W/ [id number] 12:12:00 Test Item Value Reference Range Interpretation [...] SOURCE(BEAKER) (test code = 2795) EBV-VCA ANTIBODY, [id number] 12:09:00 Test Item Value Reference Range Interpretation Comments LES-GUTIERREZ VCA IGM (BEAKER) (test Negative code = 984) CYTOMEGALOVIRUS ANTIBODY, [id number] 12:07:00 Test Item Value Reference Range Interpretation Comments CYTOMEGALOVIRUS IGM ANTIBODY Negative (BEAKER) (test code = 816) POCT-GLUCOSE [id number] 10:43:00 Test Item Value Reference Range Interpretation Comments POC-GLUCOSE METER 74 mg/dL 70-[address] [facility] 67[address] (BEAKER) (test code = [place] [address] 1538) ANTI-NUCLEAR ANTIBODY (ROMINA)2017-03-28 10:11:00 Test Item Value Reference Range Interpretation Comments ANTI-NUCLEAR ANTIBODY (ROMINA) (BEAKER) Positive Negative A (test code = 418) ROMINA TITER AND [id number] 10:11:00 Test Item Value Reference Range Interpretation Comments ROMINA TITER (BEAKER) (test code = >=:2560 1541) ROMINA PATTERN (BEAKER) (test code = Homogeneous 1781) U/S, ABDOMINAL, [id number] 09:50:00Abdomen limited area? Add comment if clarification [...] imaging with MRCP or ERCP. Signed: Kristel Trejo MDReport Verified Date/Time: 03/28/2017 09:50:16 Reading Location: [facility] P006J Ultrasound Reading Room TITIS PANEL, [id number] 06:14:00 Test Item Value Reference Range Interpretation Comments HEPATITIS A IGM ANTIBODY (BEAKER) Nonreactive Nonreactive (test code = 498) HEPATITIS B CORE IGM ANTIBODY Nonreactive Nonreactive (BEAKER) (test code = 645) HEPATITIS C ANTIBODY (BEAKER) Nonreactive Nonreactive (test code = 367) HEPATITIS B SURFACE ANTIGEN (2) Nonreactive Nonreactive (BEAKER) (test code = 2585) HEPATIC FUNCTION [id number] 05:55:00 Test Item Value Reference Range Interpretation [...] 947 U/L 6-55 H 347) BASIC METABOLIC [id number] 05:55:00 Test Item Value Reference Range Interpretation [...] NOT APPLICABLE FOR DIALYSIS PATIEN TS. PROTHROMBIN [id number] 05:42:00 Test Item Value Reference Range Interpretation Comments PROTIME (BEAKER) (test code = 14.1 seconds 11.7-14.7 759) INR (BEAKER) (test code = 370) 1.1 <=5.9 RECOMMENDED COUMADIN/WARFARIN INR THERAPY RANGESSTANDARD DOSE: 2.0 - 3.0 Includes: PROPHYLAXIS forvenous thrombosis, systemic embolization; TREATMENT for venous thrombosis and/or pulmonary embolus.HIGH RISK: Target INR is 2.5-3.5 for patients with mechanical heart valves.[id number] 05:42:00 Test Item Value Reference Range Interpretation [...] % 0-1 PERCENT (BEAKER) (test code = 6961)
[2021-05-26] MEDS ORDERED: ONDANSETRON 4 MG/2 ML VIAL ONE (18:38)
[2021-05-26] MEDS ORDERED: MORPHINE 4 MG/ML SYR ONE (18:38)
--- NOTE | 2021-05-26 19:20 | RAD REPORT ---
EXAM DESCRIPTION: RAD - Forearm Left - 05/26/2021 7:08 pm CLINICAL HISTORY: DEFORMITY COMPARISON: No comparisons FINDINGS/IMPRESSION: Distal radial impaction fracture which is mildly comminuted. Dorsal tilt of the distal radius and slight overriding. The fracture most likely extends to the articular surface.
[2021-05-26] MEDS ORDERED: HYDROCODONE/APAP 10/325 TAB ONE (19:38)
--- NOTE | 2021-05-26 20:05 | ER ---
Nurse's Notes [facility] Name: Alejandra Rodríguez Age: 61 yrs Sex: Female : 1960 Arrival Date: 05/26/2021 Time: 18:19 Bed 25 Private MD: Diagnosis: Impaction fracture of left radius Presentation: 05/26 18:28 Chief complaint: Patient states: "I was stepping off the last step of the ladder and it ab2 pushed out from under me and I landed on my wrist." Pt has obvious deformity to left wrist. Denies LOC. Coronavirus screen: Vaccine status: Patient reports receiving the 2nd dose of the covid vaccine. Client denies travel out of the [place] in the last 14 days. At this time, the client does not indicate any symptoms associated with coronavirus-19. Ebola Screen: Patient negative for fever greater than or equal to 101.5 degrees Fahrenheit, and additional compatible Ebola Virus Disease symptoms Patient denies exposure to infectious person. Patient denies travel to an Ebola-affected area in the 21 days before illness onset. No symptoms or risks identified at this time. Initial Sepsis Screen: Does the patient meet any 2 criteria? No. Patient's initial sepsis screen is negative. Does the patient have a suspected source of infection? No. Patient's initial sepsis screen is negative. Risk Assessment: Do you want to hurt yourself or someone else? Patient reports no desire to harm self or others. Onset of symptoms is unknown. 18:28 Method Of Arrival: Ambulatory ab2 18:28 Acuity: JUN 3 ab2 Triage Assessment: 18:30 General: Appears in no apparent distress. uncomfortable, Behavior is cooperative, ab2 crying. Pain: Complains of pain in left arm Pain currently is 10 out of 10 on a pain scale. Musculoskeletal: Bony deformity noted of left arm. Historical: - Allergies: 18:30 TETRACYCLINES; ab2 - PMHx: 18:30 None; ab2 - PSHx: 18:30 None; ab2 - Immunization history:: Adult Immunizations up to date. - Social history:: Smoking status: Patient denies any tobacco usage or history of. Screenin:42 Abuse screen: Denies threats or abuse. Denies injuries from another. Nutritional ld1 screening: No deficits noted. Tuberculosis screening: No symptoms or risk factors identified. Fall Risk None identified. Assessment: 18:42 General: Appears in no apparent distress. uncomfortable, Behavior is cooperative, ld1 appropriate for age, crying. Pain: Complains of pain in dorsal aspect of left forearm, left wrist and left hand Pain does not radiate. Pain currently is 10 out of 10 on a pain scale. Quality of pain is described as throbbing, Pain began suddenly, Is continuous. Neuro: Level of Consciousness is awake, alert, obeys commands, Oriented to person, place, time, situation. Cardiovascular: Capillary refill < 3 seconds Patient's skin is warm and dry. Respiratory: Airway is patent Respiratory effort is even, unlabored. GI: Abdomen is round non-distended. : No signs and/or symptoms were reported regarding the genitourinary system. EENT: No signs and/or symptoms were reported regarding the EENT system. Derm: No signs and/or symptoms reported regarding the dermatologic system. Musculoskeletal: Circulation, motion, and sensation intact. Capillary refill < 3 seconds, Range of motion: limited in left wrist Swelling present in left arm. Vital Signs: 18:28 BP 154 / 68; Pulse 64; Resp 22; Temp 97.7(TE); Pulse Ox 97% on R/A; Weight 87.09 kg; ab2 Height 5 ft. 2 in. (157.48 cm); Pain 10/10; 18:42 BP 162 / 79; Pulse 61; Resp 18; Pulse Ox 97% on R/A; Pain 10/10; ld1 19:46 BP 147 / 69; Pulse 51; Resp 18; Pulse Ox 98% on R/A; ld1 20:14 BP 153 / 69; Pulse 58; Resp 18; Pulse Ox 95% on R/A; ld1 18:28 Body Mass Index 35.12 (87.09 kg, 157.48 cm) ab2 ED Course: 18:19 Patient arrived in ED. rg4 18:23 Torrie Medina, CRISTOBLA is Primary Nurse. ld1 18:30 Triage completed. ab2 18:31 [facility]C [facility] kb 18:31 Krystian Esposito MD is Attending Physician. kb 18:31 Arm band placed on right wrist. ab2 18:42 Patient has correct armband on for positive identification. Placed in gown. Bed in low ld1 position. Call light in reach. Side rails up X2. desk monitor on. Pulse ox on. NIBP on. Door closed. Noise minimized. Warm blanket given. 18:42 No provider procedures requiring assistance completed. Inserted saline lock: 20 gauge ld1 in right forearm, using aseptic technique. 19:06 X-ray completed. Portable x-ray completed in exam room. Patient tolerated procedure bq well. 19:09 XRAY Forearm LEFT In Process Unspecified. EDMS 20:03 Orthoglass splint: Sugar tong splint applied on left arm. oe 20:31 IV discontinued, intact, bleeding controlled, No redness/swelling at site. ld1 Administered Medications: 18:41 Drug: morphine 4 mg Route: IVP; Site: right forearm; ld1 18:41 Drug: Zofran (Ondansetron) 4 mg Route: IVP; Site: right forearm; ld1 19:45 Drug: [place] (HYDROcodone-acetaminophen) 10 mg-325 mg 1 tabs Route: PO; ld1 Outcome: 20:04 Discharge ordered by . jesus 20:31 Discharged to home ambulatory, with family. ld1 20:31 Condition: stable 20:31 Discharge instructions given to patient, family, Instructed on discharge instructions, follow up and referral plans. Demonstrated understanding of instructions, follow-up care. 20:31 Patient left the ED. ld1 Signatures: Dispatcher [employer] EDMS Tiffany Rome, DNA ANALYST-C DNA ANALYST-CkCinthia Schafer Rubi rg4 Sterling Ray Lauren, RN RN ld1 Nicola Banuelos ab2 Corrections: (The following items were deleted from the chart) 18:31 18:28 Chief complaint: Patient states: "I was stepping off the last step of the ladder ab2 and it pushed out from under me and I landed on my wrist." Pt has obvious deformity to left wrist. ab2
--- NOTE | 2021-05-26 20:05 | EDPHYS ---
Physician Documentation [facility] Name: Alejandra Rodríguez Age: 61 yrs Sex: Female : 1960 Arrival Date: 05/26/2021 Time: 18:19 Bed 25 Private MD: ED Physician Krystian Esposito HPI: 05/26 20:03 This 61 yrs old Female presents to ER via Ambulatory with complaints of Fall kb Injury, Arm Injury. 20:03 Details of fall: The patient fell from a height, from a ladder. Onset: The kb symptoms/episode began/occurred just prior to arrival. Associated injuries: The patient sustained left forearm, decreased range of motion, deformity, painful injury. Severity of symptoms: At their worst the symptoms were moderate, in the emergency department the symptoms are unchanged. The patient has not experienced similar symptoms in the past. The patient has not recently seen a physician. Pt states she was coming down from a ladder and missed the last step causing her to fall. c/o pain to left forearm only. Denies any other injury. No LOC. Historical: - Allergies: 18:30 TETRACYCLINES; ab2 - PMHx: 18:30 None; ab2 - PSHx: 18:30 None; ab2 - Immunization history:: Adult Immunizations up to date. - Social history:: Smoking status: Patient denies any tobacco usage or history of. ROS: 20:02 Constitutional: Negative for fever, chills, and weight loss. kb 20:02 MS/extremity: Positive for injury or acute deformity, decreased range of motion, pain, swelling, tenderness, of the left forearm. 20:02 All other systems are negative. Exam: 20:02 Constitutional: This is a well developed, well nourished patient who is awake, alert, kb and in no acute distress. Head/Face: Normocephalic, atraumatic. ENT: Moist Mucous membranes Respiratory: Respirations even and unlabored. No increased work of breathing. Talking in full sentences Skin: Warm, dry with normal turgor. Normal color. Neuro: Awake and alert, GCS 15, oriented to person, place, time, and situation. Moves all extremities. Normal gait. Psych: Awake, alert, with orientation to person, place and time. Behavior, mood, and affect are within normal limits. 20:02 Musculoskeletal/extremity: Extremities: grossly normal except: noted in the left forearm: decreased ROM, deformity, pain, swelling, tenderness, ROM: limited active range of motion due to pain, in the left forearm, Circulation is intact in all extremities. Sensation intact. Vital Signs: 18:28 BP 154 / 68; Pulse 64; Resp 22; Temp 97.7(TE); Pulse Ox 97% on R/A; Weight 87.09 kg; ab2 Height 5 ft. 2 in. (157.48 cm); Pain 10/10; 18:42 BP 162 / 79; Pulse 61; Resp 18; Pulse Ox 97% on R/A; Pain 10/10; ld1 19:46 BP 147 / 69; Pulse 51; Resp 18; Pulse Ox 98% on R/A; ld1 20:14 BP 153 / 69; Pulse 58; Resp 18; Pulse Ox 95% on R/A; ld1 18:28 Body Mass Index 35.12 (87.09 kg, 157.48 cm) ab2 MDM: 18:31 Patient medically screened. kb 19:27 Data reviewed: vital signs, nurses notes. Data interpreted: Pulse oximetry: on room air kb is 97 %. Interpretation: normal. 20:02 Counseling: I had a detailed discussion with the patient and/or guardian regarding: the kb historical points, exam findings, and any diagnostic results supporting the discharge/admit diagnosis, radiology results, the need for outpatient follow up, a orthopedic surgeon, to return to the emergency department if symptoms worsen or persist or if there are any questions or concerns that arise at home. 05/26 18:27 Order name: XRAY Forearm LEFT; Complete Time: 19:25 ld1 05/26 18:32 Order name: IV Start; Complete Time: 18:33 kb 05/26 19: Order name: Misc. Order: finger traps; Complete Time: 19:39 kb 05/26 19:27 Order name: Sugar Tong Forearm Splint; Complete Time: 20:02 kb 05/26 19:27 Order name: Sling; Complete Time: 20:02 kb Administered Medications: 18:41 Drug: morphine 4 mg Route: IVP; Site: right forearm; ld1 18:41 Drug: Zofran (Ondansetron) 4 mg Route: IVP; Site: right forearm; ld1 19:45 Drug: [place] (HYDROcodone-acetaminophen) 10 mg-325 mg 1 tabs Route: PO; ld1 Disposition Summary: 05/26/21 20:04 Discharge Ordered Location: Home Condition: Stable kb Diagnosis - Impaction fracture of left radius kb Followup: kb - With: Emergency Department - When: As needed - Reason: Worsening of condition Followup: kb - With: Private Physician - When: 2 - 3 days - Reason: Recheck today's complaints, Continuance of care, Re-evaluation by your physician Discharge Instructions: - Discharge Summary Sheet kb - Radial Fracture kb Forms: - Medication Reconciliation Form kb - Thank You Letter kb - Antibiotic Education kb - Prescription Opioid Use kb Prescriptions: - Diclofenac Sodium 75 mg Oral tablet,delayed release (DR/EC) - take 1 tablet by ORAL route 2 times per day As needed; 30 tablet; Refills: 0, kb Product Selection Permitted Addendum: 05/30/2021 07:11 Co-signature as Attending Physician, Krystian Esposito MD I agree with the assessment and c milton plan of care. Signatures: Dispatcher [employer] EDTiffany Kaplan, POST TRONIC MACHINE OPERATOR-C POST TRONIC MACHINE OPERATOR-Krystian Faye MD MD cha Dibbern, Lauren, RN RN ld1 Nicola Banuelos2 Corrections: (The following items were deleted from the chart) 05/26 18:34 18:28 Hand Left 3 View+RAD.RAD.BRZ ordered. EDMS EDMS 18:36 18:28 Wrist Left 3 View+RAD.RAD.BRZ ordered. EDMS EDMS
[2021-05-26 21:21] VITALS: TEMP 97.7
[2021-05-26 21:25] VITALS: BP 153/69; O2SAT 95
== END 2021-05-26 20:31 | disposition home or self-care (01) ==
LOC: ER 18:18
PROC: 2W3DX1Z Immobilization of Left Lower Arm using Splint (ICD-10-PCS; principal; 2021-05-26)
DX: S52.502A Unspecified fracture of the lower end of left radius, initial encounter for closed fracture (principal); W11.XXXA Fall on and from ladder, initial encounter; Z88.1 Allergy status to other antibiotic agents
CPT/HCPCS: 73090; 96375; 96374; 99284; 29125; J2405

== ENCOUNTER 2024-03-26 08:23 | Day surgery (SDC) | payer OTHER ==
[2024-03-25 10:16] LABS: Absolute Lymphocytes (CBC) 2.1 K/uL (0.7-4.9); Absolute Monocytes 0.7 K/uL (0.1-1.3); Absolute Neutrophil 4.5 K/uL (1.8-8.0); Basophils % 0.6 % (0-1.3); Eosinophils % 0.4 % (0-4.4); Hematocrit 39.8 % (36.0-45.0); Hemoglobin 13.5 g/dL (12.0-15.0); MCH 28.3 pg (27.0-35.0); MCHC 33.9 g/dL (32.0-36.0); MCV 83.3 fL (80-100); MPV 8.4 fL (7.6-11.3); Monocytes % 9.3 % (3.3-12.3); Neutrophils % 60.7 % (41.7-73.7); Platelets 281 thou/uL (152-406); RBC Red Blood Cell Count 4.78 M/uL (3.86-4.86); Red Cell Distribution Width 15.6 % (12.1-15.2)
[2024-03-25 10:26] LABS: Anion Gap 6.5 mEq/L (5.0-15.0); Potassium 3.5 mEq/L (3.5-5.1)
--- NOTE | 2024-03-25 12:58 | EKG ---
Test Date: 2024-03-25 Test Time: 11:24:47 [place]osaic Layer: CARIDAD MEASUREMENT RESULTS: Intervals: Rate: 56 MN: 120 QRSD: 88 QT: 428 QTc: 413 [place]: P: 58 MN: 120 QRS: 60 T: 54 INTERPRETIVE STATEMENTS: Sinus bradycardia Otherwise normal ECG Compared to ECG 04/03/2021 07:33:49 No significant changes Electronically Signed On 03-25-24 12:57:05 [employer] SUPERVIS[employer] by Solitario Cintron
[2024-03-26] MEDS: Ringers Lactate 1,000 ML IV ONE (08:40)
[2024-03-26] MEDS ORDERED: FENTANYL CITR 100 MCG/2 ML ONE ×2 (09:23→11:58)
[2024-03-26] MEDS ORDERED: ONDANSETRON 4 MG/2 ML VIAL ONE (09:23)
[2024-03-26] MEDS ORDERED: LIDOCAINE 2% MPF 5 ML VIAL ONE (09:23)
[2024-03-26] MEDS ORDERED: propofoL 200 MG/20 ML VIAL IV ONE (09:23)
[2024-03-26] MEDS ORDERED: MIDAZOLAM HCL 2 MG/2 ML INJ ONE (09:23)
[2024-03-26] MEDS ORDERED: ROCURONIUM 50 MG/5 ML VIAL IV ONE (09:23)
[2024-03-26] MEDS: CEFAZOLIN SODIUM 2 GM/VIAL ONE (11:16)
[2024-03-26] MEDS ORDERED: Phenylephrine HCl 10 MG/ML 1 ML VIAL ONE (11:17)
[2024-03-26] MEDS ORDERED: GLYCOPYRROLATE 0.2 MG/ML SYR ONE (11:20)
[2024-03-26] MEDS: LIDOCAINE HCL/EPINEPHRINE 20 ML MDV ONE (11:28)
[2024-03-26] MEDS ORDERED: KETOROLAC 30 MG/ML INJ ONE (11:43)
[2024-03-26] MEDS ORDERED: dexAMETHasone 10 MG/ML VIAL ONE (11:43)
--- NOTE | 2024-03-26 12:16 | P.OP ---
Preoperative diagnosis: Ventral Incisional Hernia Postoperative diagnosis: Ventral Incisional Hernia Primary procedure: Laparoscopic Ventral Hernia Repair with mesh Anesthesia: GETA + Local Estimated blood loss: <5cc Specimen: None Findings: Ventral hernia ~ 3cm Complications: None Implants: Bard Ventralite ST with Echo 11.4cm Round, Sorbafix x 45 tacks Transferred to: Recovery Room Condition: Good
[2024-03-26] MEDS ORDERED: SUGAMMADEX SODIUM 200 MG/2 ML VIAL IV ONE (12:20)
[2024-03-26] MEDS: ONDANSETRON 4 MG/2 ML VIAL ONE (12:34)
[2024-03-26] MEDS ORDERED: Ringers Lactate 1,000 ML IV ONE (12:44)
[2024-03-26] MEDS: PROMETHAZINE INJ 25 MG/ML AMP ONE (12:47)
[2024-03-26] MEDS: HYDROMORPHONE HCL 1 MG/ML INJ ONE (13:08)
[2024-03-26 14:29] VITALS: BP 135/54; TEMP 97; O2SAT 95
--- NOTE | 2024-03-26 22:34 | OP ---
Date of Procedure: 03/26/2024 Surgeon: Karime López MD, Preoperative Diagnosis: Ventral incisional hernia. Postoperative Diagnosis: Ventral incisional hernia. Procedure: Laparoscopic ventral hernia repair with mesh. Anesthesia: General endotracheal plus local with 1% lidocaine. Estimated Blood Loss: 5 cc. Specimens: None. Findings: Ventral hernia approximately 3 cm in size. Complications: None. Implants: Bard Ventralight ST mesh with Echo positioning System, 11.4 cm round mesh utilized, SorbaF ix absorbable fixation tacks x45 tacks utilized. Disposition: The patient was transferred to recovery room in good condition. Procedure In Detail: After informed consent was obtained, the patient was brought to the operating r oom, prepped and draped in the usual sterile fashion. After adequate anesthesia was achieved, I anes thetized an area in the left upper quadrant down to subcutaneous tissues. 5-mm 0-degree optical troc ar was introduced into the abdomen without incident or complication. Insufflation was obtained to 15 mmHg at this time. There was no injury to vital structures. Additional trocar was placed in the le ft lower abdomen. This was similarly anesthetized and sharply incised, and a 12 mm trocar was placed under direct visualization without incident or complication. I proceeded to take down the incarcera karime omentum from the ventral incisional hernia in the midline in the periumbilical region using the L igaSure device. After this was returned to the normal anatomic position, I brought in an Endo Stitch with 0 V-Loc suture and secured the hernia defect imbricating the hernia sac in a running fashion wi th good approximation tissues. I then deployed 11.[address] mesh with Echo positionin g system. 11.4 cm mesh was utilized and secured to the anterior bowel wall with a single crown. At this point, the balloon deployment system was removed, found to be intact on the back table. I then secured the mesh to the anterior abdominal wall without evidence of complication. Ultimately, using a total of 45 SorbaFix absorbable fixation tacks with good approximation of the mesh. At this point, the abdomen was partially desufflated. I then closed the 12 mm trocar site using a Jordan-Sukhwinder suture passer with 0 Vicryl in an interrupted fashion with good approximation of tissues. The abdome n was desufflated under direct visualization without incident or complication. Remaining trocars wer e removed. All skin incisions were then copiously irrigated and closed with a 4-0 Monocryl in a runn ing fashion. Dermabond was placed over top. The patient tolerated the procedure without incident or complication and transferred to PACU in good condition. All counts were correct at the end of the c ase. RADHA/NEWTONL Voice ID: [id number] Report ID: [id number]
== END 2024-03-26 13:56 | disposition home or self-care (01) ==
LOC: OR 08:23
PROVIDERS: ATTEND Surgery
PROC: 0WUF4JZ Supplement Abdominal Wall with Synthetic Substitute, Percutaneous Endoscopic Approach (ICD-10-PCS; principal; 2024-03-26 11:30)
DX: K43.9 Ventral hernia without obstruction or gangrene (principal)
CPT/HCPCS: 93005; 85025; 80048; 36415; 49593; J2550; J2704; J2371; J2003; J2250; J3010 ×2; J1100; J1171; J2405 ×2; J7120 ×2; C1781